=== PATIENT | female | born 1940 | race Caucasian/White ===

== ENCOUNTER 2017-07-12 11:37 | Inpatient (IN) | payer MEDICARE, BC ==
[2017-07-12] MEDS ORDERED: Famotidine 20 MG/2 ML SDV IVPUSH ONE (11:39)
[2017-07-12] MEDS ORDERED: Metoprolol Tartrate 5 MG/5 ML SDV IVPUSH ONE (11:39)
--- NOTE | 2017-07-12 11:39 | EDM.PDOC ---
ED HPI GENERAL MEDICAL PROBLEM - General Chief Complaint: Chest Pain Stated Complaint: Heart Palpatation Time Seen by Provider: 07/12/17 11:39 Source of Information: Reports: Patient, Family (), Old Records ([facility] chart/EMR) History Limitations: Reports: No Limitations - History of Present Illness INITIAL COMMENTS - FREE TEXT/NARRATIVE: Patient was brought to the emergency room via private automobile by her for evaluation of intermittent heart pounding and tachycardia during the last week with some recent increased stressors secondary to the recent unexpected sudden of her son-in-law. She has not had any cardiac workup or cardiac problems in the past. The patient denies any chest pain/pressure, dizziness, orthostasis, orthopnea, diaphoresis, paresthesias, recent decreased exercise tolerance, or any other anginal-type symptoms. She also denies any recent increased caffeine intake, medication noncompliance, recent change in medications, cold medications, etc. No recent history of abdominal pain, heartburn, nausea, diarrhea, melena, gross hematochezia, or any food intolerance , including fatty foods, etc. with normal bowel movement yesterday. She denies any colic, dysuria, or other UTI symptoms. The patient also denies any recent fever, cough, wheezing, dyspnea, etc.. No history of recent headaches, visual changes, diplopia, change in mental status, or other change in neurological status. She denies any pain or discomfort. Duration: Week(s): (One week as above), Intermittent Location: Reports: Other (No pain) Severity: Moderate (Pounding) Improves with: Reports: None Worsens with: Reports: None Context: Reports: Other (As above) Associated Symptoms: Denies: Confusion, Chest Pain, Cough, Diaphoresis, Fever/ Chills, Headaches, Loss of Appetite, Malaise, Nausea/Vomiting, Rash, Seizure, Shortness of Breath, Syncope, Weakness Treatments CAT AND DOG BATHER: Reports: Other (see below) (None) - Related Data Allergies Allergy/AdvReac Type Severity Reaction Status Date / Time aspirin Allergy Airway Verified 07/12/17 12:17 Tightness erythromycin base Allergy Hives Verified 07/12/17 12:17 Home Meds: Home Meds Allopurinol 100 mg PO DAILY 11/03/15 [History] Cholecalciferol (Vitamin D3) [Vitamin D3] 2,000 unit PO DAILY 11/03/15 [History] Cranberry 1,000 mg PO DAILY 11/03/15 [History] L. Acidophilus/Pectin, [place] [Acidophilus Capsule] 2 each PO DAILY 11/03/15 [ History] Lutein/Minerals/Vit A,C & E [I-Louise] 1 caplet PO DAILY 11/03/15 [History] Multivitamin [Multivitamins] 1 each PO DAILY 11/03/15 [History] Simvastatin 30 mg PO BEDTIME 11/03/15 [History] Enalapril [Vasotec] 20 mg PO DAILY 07/12/17 [History] Past Medical History HEENT History: Reports: Cataract, Impaired Vision, Other (See Below). Denies: Allergic Rhinitis, Glaucoma, Hard of Hearing, Macular Degeneration, Retinal Detachment Other HEENT History: Patient wears glasses Cardiovascular History: Reports: Heart Murmur, High Cholesterol, Hypertension, Other (See Below). Denies: Afib, Aneurysm, Arrhythmia, Blood Clots/VTE/DVT, CAD , Cardiomyopathy, Heart Failure, OK, PVD, Syncope Other Cardiovascular History: Hypertriglyceridemia. Aortic stenosis and mitral valve insufficiency by clinical exam with no apparent previous workup Respiratory History: Reports: None, Intubation, Previous. Denies: Asthma, Bronchitis, Recurrent, COPD, Intubation, Difficult, PE, Pneumonia, Recurrent, Pneumothorax, Sleep Apnea Gastrointestinal History: Reports: Cholelithiasis, Colon Polyp, Diverticulosis, Fecal Incontinence, GERD, Hemorrhoids, Other (See Below). Denies: Celiac Disease, Chronic Constipation, Chronic Diarrhea, Gastritis, GI Bleed, Hepatitis , Helicobacter Pylori, Hiatal Hernia, Inflammatory Bowel Disease, Irritable Bowel Syndrome, Jaundice, Pancreatitis Other Gastrointestinal History: Diffuse colonic polyps by colonoscopy on including a tubular adenoma at the hepatic flexure and hyperplastic colonic polyps in the ascending colon and 10 cm and 15 cm in the sigmoid colon. Sigmoid diverticulosis with history of diverticulitis Genitourinary History: Reports: Chronic Renal Insuffiency, UTI, Recurrent. Denies: Renal Calculus, Retention, Urinary, STD, Urinary Incontinence CLIENT PROJECT COORDINATOR History: Reports: . 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 First trimester SAB requiring D&C as below. Otherwise , Full term without complications during pregnancies or deliveries. Menopause at age 50 Musculoskeletal History: Reports: Arthritis, Fracture, Gout, Osteoarthritis, RA , Other (See Below). Denies: Amputation, Fibromyalgia Other Musculoskeletal History: Right ankle fracture in 1996 Neurological History: Reports: Neuropathy, Peripheral. Denies: Cerebral Aneurysms, Concussion, CVA, Head Trauma, Migraines, MS, Parkinson's, Seizure, TIA Psychiatric History: Reports: Anxiety, Depression. Denies: Abuse, Victim of, ADD, ADHD, Addiction, Alzheimers Disease, Dementia, Psych Hospitalization(s), PTSD, Suicide Attempt, Suicidal Ideation Endocrine/Metabolic History: Reports: Obesity/BMI 30+. Denies: Diabetes, Gestational, Diabetes, Type I, Diabetes, Type II, Diabetes Mellitus, Type 3c, Hypothyroidism, IDDM Hematologic History: Denies: Anemia, B12 Deficiency, Blood Transfusion(s), Iron Deficiency Immunologic History: Reports: None. Denies: AIDS, HIV, SLE Oncologic (Cancer) History: Reports: None. Denies: Basal Cell Carcinoma, Breast , Cervix, Colon, Hodgkin's Lymphoma, Leukemia, Lymphoma, Malignant Melanoma, Non -Hodgkin's Lymphoma, Ovarian, Squamous Cell Carcinoma, Uterine Dermatologic History: Reports: None. Denies: Eczema, Psoriasis - Infectious Disease History Infectious Disease History: Reports: Chicken Pox, Measles, Shingles (Right breast and back region with shingles and subsequent postherpetic neuralgia which is now resolved). Denies: C-Difficile, Meningitis, Mononucleosis, MRSA, Mumps, Pertussis (Whooping Cough), Rubella, Scarlet Fever, TB, VRE - Past Surgical History Head Surgeries/Procedures: Reports: None. Denies: Craniotomy HEENT Surgical History: Reports: Cataract Surgery, Oral Surgery, Other (See Below). Denies: Adenoidectomy, Eye Surgery, Laser Surgery, LASIK, Myringotomy w Tube(s), Naso-Sinus Surgery, Tonsillectomy Other HEENT Surgeries/Procedures: Bilateral cataract surgery in 2015. Multiple teeth extractions. [place] teeth extraction 4 at about age 33 Cardiovascular Surgical History: Reports: None. Denies: Varicose Respiratory Surgical History: Reports: None. Denies: Thoracentesis GI Surgical History: Reports: Appendectomy, Cholecystectomy, Colonoscopy, Polypectomy, Other (See Below). Denies: EGD, Hernia, Abdominal, Hernia, Inguinal, Hernia Repair/Other, Aron Fundoplication Other GI Surgeries/Procedures: Multiple polypectomies as above at the time of colonoscopy on 11/03/15 with previous colonoscopies on 10/29/10 and 10/26/05. Laparoscopic cholecystectomy on 06/16/11. Appendectomy concurrent with probable hymenectomy at age 11 Female Surgical History: Reports: D&C, Other (See Below). Denies: Breast Biopsy, Hysterectomy, Oophorectomy, Salpingo-Oophorectomy, Tubal Ligation Other Female Surgeries/Procedures: Probable hymenectomy at time of appendectomy at age 11. D&C secondary to first trimester SAB Endocrine Surgical History: Reports: None. Denies: Thyroid Biopsy Neurological Surgical History: Reports: None. Denies: C-Spine, Discectomy, Intracranial, Laminectomy, Lumbar Spine, Sacral Spine, Scoliosis, Spinal Fusion Musculoskeletal Surgical History: Reports: None. Denies: Arthroscopic Knee, Arthroscopic Procedure, Carpal Tunnel, Ganglion Cyst, Joint Replacement, Knee Replacement, ORIF, Shoulder Surgery Oncologic Surgical History: Reports: None Dermatological Surgical History: Reports: None - Past Imaging History Past Imaging History: Reports: None Social & Family History - Family History HEENT: Reports: Glaucoma, Other (See Below). Denies: Allergic Rhinitis, Macular Degeneration, Retinal Detachment Other HEENT Family History: Mother with glaucoma Cardiac: Reports: Blood Clots/VTE/DVT, CAD, OK, Other (See Below). Denies: Afib , Aneurysm, Arrhythmia, Heart Failure, High Cholesterol, Hypertension, Pacemaker , PVD/COD Other Cardiac Family History: Maternal grandfather with fatal OK secondary to typhoid exposure at age 50? Mother with fatal postoperative PE shortly after colonoscopy at age 78. Respiratory: Reports: PE, Other (See Below). Denies: Asthma, COPD, Pneumothorax , Sleep Apnea Other Respiratory Family Hisory: Mother with history of PE as above. GI: Reports: Cholelithiasis, Other (See Below). Denies: Celiac Disease, Colon Polyps, GERD, GI bleed, Inflammatory Bowel Disease, Irritable Bowel Syndrome, PUD Other GI Family History: Mother with cholelithiasis : Reports: None. Denies: Dialysis, Renal Calculus, Renal Disease/ Insufficiency OBGYN: Reports: None. Denies: Dysfunctional uterine bleeding, Endometriosis, Recurrent Spontaneous Musculoskeletal: Reports: None. Denies: Gout, RA, SLE Neurological: Reports: CVA, TIA, Other (See Below). Denies: Alzheimers Disease , Dementia, Migraines, MS, Parkinson's, Seizure Other Neurological Family History: Brother with TIA at age 76. Father with CVA Psychiatric: Reports: None. Denies: Abuse, Victim of, ADD, ADHD, Anxiety, Depression, Psych Hospitalization(s), PTSD, Suicide Attempt Endocrine/Metabolic: Reports: Diabetes, type II, Other (See Below). Denies: Hypothyroidism, IDDM Other Endocrine/Metabolic Family History: Mother and sister with AODM Hematologic: Reports: None. Denies: Anemia Immunologic: Reports: None. Denies: AIDS, HIV, SLE Dermatologic: Reports: None. Denies: Eczema, Psoriasis Oncologic: Reports: Bone, Lung, Other (See Below). Denies: Breast, Cervix, Colon, Hodgkin's Lymphoma, Leukemia, Lymphoma, Non-Hodgkin's Lymphoma, Ovarian, Skin, Uterine Other Oncologic Family History: Mother with lung cancer with history of tobacco use. Father with possible bone cancer. - Tobacco Use Smoking Status *Q: Never Smoker Tobacco Use Within Last Twelve Months: No Used Tobacco, but Quit: No Smoking Cessation Information Provided To Patient: No Second Hand Smoke Exposure: No Second Hand Smoke Education Provided: No - Caffeine Use Caffeine Use: Reports: Coffee (One cup per day). 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 ED EXAM, GENERAL - Physical Exam Exam: See Below Exam Limited By: No Limitations General Appearance: Alert, WD/WN, No Apparent Distress, Anxious (Mild to moderate) Eye Exam: Bilateral Eye: EOMI, Normal Fundi, Normal Inspection (No nystagmus), PERRL Ears: Normal External Exam, Normal Canal, Hearing Grossly Normal, Normal TMs Nose: Normal Inspection, Normal Mucosa, No Blood Throat/Mouth: Normal Lips, Normal Gums, Normal Oropharynx, Normal Voice, No Airway Compromise. No: Normal Teeth (Multiple missing teeth), Dysphagia, Perioral Cyanosis Head: Atraumatic, Normocephalic. No: Facial Swelling, Facial Tenderness, Sinus Tenderness Neck: Supple, Non-Tender, Full Range of Motion, Carotid Bruit (Moderate bilateral carotid bruits versus transmitted heart sounds). No: Lymphadenopathy (L), Lymphadenopathy (R), Thyromegaly Respiratory/Chest: Lungs Clear, No Accessory Muscle Use, Chest Non-Tender, Rales (Mild bilateral basilar rales), Other (Vessel thorax consistent with COPD) . No: Rhonchi, Wheezing, Pleural Rub, Retractions Cardiovascular: Normal Peripheral Pulses, No Gallop, No JVD, No Rub, Tachycardia (Regular rhythm), Systolic Murmur (2-3/6 MATEO of the mitral and aortic valves). No: No Edema (Dependent edema as below), Gallop/S3, Gallop/S4, Friction Rub Peripheral Pulses: 2+: Radial (L), Radial (R), Dorsalis Pedis (L), Dorsalis Pedis (R) GI/Abdominal: Normal Bowel Sounds, Soft, Non-Tender, No Organomegaly, No Distention, No Abnormal Bruit, No Mass, Pelvis Stable, Other (Obese). No: Guarding (Female) Exam: Deferred Rectal (Female) Exam: Deferred Back Exam: Normal Inspection, Full Range of Motion, Other (Moderate kyphosis). No: CVA Tenderness (L), CVA Tenderness (R), Muscle Spasm Extremities: Normal Range of Motion, Non-Tender, Normal Capillary Refill, Pedal Edema (Trace to +1 bilateral pedal/pretibial edema). No: Kassie's Sign, Leg Pain Neurological: Alert, Oriented, CN II-XII Intact, Normal Cognition, Normal Gait, Normal Reflexes (Negative Babinski's), No Motor/Sensory Deficits Psychiatric: Anxious (Moderate) Skin Exam: Warm, Dry, Intact, Normal Color, No Rash. No: Diaphoretic, Wound/ Incision Lymphatic: No Adenopathy EKG INTERPRETATION EKG Date: 07/12/17 Time: 11:49 Rhythm: Other (Sinus tachycardia) Rate (Beats/Min): 107 [place]: Normal (Left cardiac axis) P-Wave: Enlarged (Diffuse biphasic P wavesmild) QRS: Normal (QRS interval of 0.09 seconds) ST-T: Normal QT: Normal AK/PQ Interval: 0.20 seconds representing a new first degree AV block since last EKG on 08/22/10 Comparison: Change From Previous EKG (As above) EKG Interpretation Comments: 1. No acute ischemic changes 2. Probable left atrial enlargement 3. Newly diagnosed first-degree AV block Course - Vital Signs Last Recorded V/S: Last Vital Signs Temp 36.9 C 07/12/17 14:20 Pulse 82 07/12/17 14:51 Resp 18 07/12/17 14:51 BP 152/75 H 07/12/17 14:51 Pulse Ox 100 07/12/17 14:51 Vital Signs - 24 hr 07/12/17 07/12/17 07/12/17 11:39 11:40 11:46 Temperature [ 36.8 C 37.0 C Oral] Pulse, Peripheral Pulse, 110 H 108 H Peripheral [ Right Pulse Oximetry] Respiratory 20 19 Rate Blood Pressure Blood Pressure 190/73 H 175/84 H [Right Upper Arm] O2 Sat by Pulse 100 100 Oximetry O2 Sat by Pulse 98 Oximetry [ Nasal Cannula] 07/12/17 07/12/17 07/12/17 12:01 12:03 12:16 Temperature [ Oral] Pulse, 110 H Peripheral Pulse, 107 H 98 Peripheral [ Right Pulse Oximetry] Respiratory 20 17 Rate Blood Pressure 175/84 H Blood Pressure 157/58 H 151/74 H [Right Upper Arm] O2 Sat by Pulse 98 98 Oximetry O2 Sat by Pulse Oximetry [ Nasal Cannula] 07/12/17 07/12/17 07/12/17 12:31 12:46 13:15 Temperature [ Oral] Pulse, Peripheral Pulse, 94 96 90 Peripheral [ Right Pulse Oximetry] Respiratory 17 18 20 Rate Blood Pressure Blood Pressure 154/68 H 151/66 H 154/63 H [Right Upper Arm] O2 Sat by Pulse 99 99 100 Oximetry O2 Sat by Pulse Oximetry [ Nasal Cannula] 07/12/17 07/12/17 07/12/17 13:57 14:01 14:20 Temperature [ 36.9 C Oral] Pulse, 95 Peripheral Pulse, 95 91 Peripheral [ Right Pulse Oximetry] Respiratory 18 19 Rate Blood Pressure 176/76 H Blood Pressure 176/76 H 162/61 H [Right Upper Arm] O2 Sat by Pulse 99 100 Oximetry O2 Sat by Pulse Oximetry [ Nasal Cannula] 07/12/17 14:51 Temperature [ Oral] Pulse, Peripheral Pulse, 82 Peripheral [ Right Pulse Oximetry] Respiratory 18 Rate Blood Pressure Blood Pressure 152/75 H [Right Upper Arm] O2 Sat by Pulse 100 Oximetry O2 Sat by Pulse Oximetry [ Nasal Cannula] - Orders/Labs/Meds Orders: Active Orders 24 hr Category Date Time Status Cardiac Monitoring [RC] . DIRECTED Care 07/12/17 11:40 Active EKG Documentation Completion [RC] ASDIRECTED Care 07/12/17 11:40 Active Oxygen Therapy, ED [RC] CONTINUOUS Care 07/12/17 11:40 Active Peripheral IV Care [RC] . DIRECTED Care 07/12/17 11:40 Active Pulse Oximetry [RC] CONTINUOUS Care 07/12/17 11:40 Active Up With Assistance [RC] PFP Care 07/12/17 11:40 Active Vital Signs [RC] PFP Care 07/12/17 11:40 Active Nothing per Oral Now Diet [DIET] Diet 07/12/17 Breakfast Active Chest 1V Frontal [CR] Stat Exams 07/12/17 11:40 Ordered Chest PE [Ang Chest] [CT] Stat Exams 07/12/17 12:47 Taken Sodium Chloride 0.9% [Saline Flush] Med 07/12/17 11:39 Active 10 ml FLUSH ASDIRECTED PRN Obtain Past Medical Record [OM.PC] Urgent Oth 07/12/17 11:40 Active Peripheral IV Insertion Adult [OM.PC] Stat Oth 07/12/17 11:40 Ordered Resuscitation Status Stat Resus Stat 07/12/17 11:39 Ordered Medication Orders Sodium Chloride (Saline Flush) 10 ml FLUSH ASDIRECTED PRN PRN Reason: Keep Vein Open Last Admin: 07/12/17 14:19 Dose: 10 ml Labs: Laboratory Tests 07/12/17 07/12/17 07/12/17 Range/Units 12:00 12:00 12:00 WBC 8.7 (4.0-10.2) K/uL RBC 4.45 (3.77-5.09) M/uL Hgb 14.2 (11.7-15.5) g/dL Hct 42.4 (34.0-46.0) % MCV 95.3 (84.0-98.0) fL MCH 31.9 (28.2-33.3) pg MCHC 33.5 (31.7-36.0) g/dL RDW 15.0 H (11.2-14.1) % Plt Count 225 (150-350) K/uL Neut % (Auto) 44.2 L (45.0-80.0) % Lymph % (Auto) 36.3 (10.0-50.0) % Lamb % (Auto) 16.3 H (2.0-14.0) % Eos % (Auto) 2.5 (0.0-5.0) % Baso % (Auto) 0.7 (0.0-2.0) % Neut # (Auto) 3.83 (1.40-7.00) K/uL Lymph # (Auto) 3.15 (0.50-3.50) K/uL Lamb # (Auto) 1.41 H (0.00-1.00) K/uL Eos # (Auto) 0.22 (0.00-0.50) K/uL Baso # (Auto) 0.06 (0.00-0.20) K/uL PT 12.0 H (9.8-11.7) SEC INR 1.1 APTT 28.2 (22.1-29.8) SEC D-Dimer, Quantitative 1060 H (0-400) ng/mL Sodium (136-145) mmol/L Potassium (3.5-5.1) mmol/L Chloride (98-107) mmol/L Carbon Dioxide (21.0-32.0) mmol/L BUN (7-18) mg/dL Creatinine (0.51-1.17) mg/dL Est Cr Clr Drug Dosing Estimated GFR (MDRD) mL/min Glucose (74-106) mg/dL Lactic Acid (0.4-2.0) mmol/L Uric Acid (2.6-7.2) mg/dL Calcium (8.5-10.1) mg/dL Magnesium (1.8-2.4) mg/dL Total Bilirubin (0.2-1.0) mg/dL AST (15-37) U/L ALT (12-78) U/L Alkaline Phosphatase (46-116) IU/L Creatine Kinase (26-308) U/L Creatine Kinase Index (0.0-2.5) % CK-MB (CK-2) (0.00-3.60) ng/mL Troponin I (0.000-0.056) ng/mL NT-Pro-B Natriuret Pep (0-125) pg/mL Total Protein (6.4-8.2) g/dL Albumin (3.4-5.0) g/dL TSH, Ultra Sensitive (0.358-3.740) mIU/mL 07/12/17 07/12/17 Range/Units 12:00 12:00 WBC (4.0-10.2) K/uL RBC (3.77-5.09) M/uL Hgb (11.7-15.5) g/dL Hct (34.0-46.0) % MCV (84.0-98.0) fL MCH (28.2-33.3) pg MCHC (31.7-36.0) g/dL RDW (11.2-14.1) % Plt Count (150-350) K/uL Neut % (Auto) (45.0-80.0) % Lymph % (Auto) (10.0-50.0) % Lamb % (Auto) (2.0-14.0) % Eos % (Auto) (0.0-5.0) % Baso % (Auto) (0.0-2.0) % Neut # (Auto) (1.40-7.00) K/uL Lymph # (Auto) (0.50-3.50) K/uL Lamb # (Auto) (0.00-1.00) K/uL Eos # (Auto) (0.00-0.50) K/uL Baso # (Auto) (0.00-0.20) K/uL PT (9.8-11.7) SEC INR APTT (22.1-29.8) SEC D-Dimer, Quantitative (0-400) ng/mL Sodium 139 (136-145) mmol/L Potassium 4.8 (3.5-5.1) mmol/L Chloride 104 (98-107) mmol/L Carbon Dioxide 26.7 (21.0-32.0) mmol/L BUN 21 H (7-18) mg/dL Creatinine 1.19 H (0.51-1.17) mg/dL Est Cr Clr Drug Dosing TNP Estimated GFR (MDRD) 44 mL/min Glucose 107 H (74-106) mg/dL Lactic Acid 2.7 H (0.4-2.0) mmol/L Uric Acid 5.7 (2.6-7.2) mg/dL Calcium 9.9 (8.5-10.1) mg/dL Magnesium 1.4 L (1.8-2.4) mg/dL Total Bilirubin 0.6 (0.2-1.0) mg/dL AST 45 H (15-37) U/L ALT 30 (12-78) U/L Alkaline Phosphatase 97 (46-116) IU/L Creatine Kinase 43 (26-308) U/L Creatine Kinase Index 0.0 (0.0-2.5) % CK-MB (CK-2) 0.00 (0.00-3.60) ng/mL Troponin I 0.007 (0.000-0.056) ng/mL NT-Pro-B Natriuret Pep 586 H (0-125) pg/mL Total Protein 8.9 H (6.4-8.2) g/dL Albumin 3.4 (3.4-5.0) g/dL TSH, Ultra Sensitive 4.457 H (0.358-3.740) mIU/mL Meds: Medications Generic Name Dose Route Start Last Admin Trade Name Freq PRN Reason Stop Dose Admin Sodium Chloride 10 ml 07/12/17 11:39 07/12/17 14:19 Saline Flush FLUSH 10 ml ASDIRECTED PRN Administration Keep Vein Open Discontinued Medications Generic Name Dose Route Start Last Admin Trade Name Freq PRN Reason Stop Dose Admin Famotidine 40 mg 07/12/17 11:39 07/12/17 12:03 Pepcid IVPUSH 07/12/17 11:40 40 mg ONETIME ONE Administration Furosemide 60 mg 07/12/17 14:13 07/12/17 14:17 Lasix IVPUSH 07/12/17 14:14 60 mg NOW ONE Administration Iopamidol 100 ml 07/12/17 13:16 07/12/17 13:50 [id number] (76%) IVPUSH 07/12/17 13:17 100 ml ONETIME ONE Administration Metoprolol Tartrate 2.5 mg 07/12/17 11:39 07/12/17 12:03 Lopressor IVPUSH 07/12/17 11:40 2.5 mg ONETIME ONE Administration Metoprolol Tartrate 50 mg 07/12/17 13:33 07/12/17 14:01 Lopressor PO 07/12/17 13:34 50 mg ONETIME ONE Administration - Radiology Interpretation Free Text/Narrative:: Heart monitor showed initial sinus tachycardia with heart rate in the 110s with no ectopy or arrhythmia with improvement of heart rate into the 90s after IV Lopressor was given. Chest x-ray, portable, shows evidence of moderate COPD changes with additional mild cardiomegaly and probable pulmonary hypertension and/or mild centralized CHF. Somewhat poor inspiratory film with no pulmonary infiltrates Telephone consultation at 15:04 hours with the radiology department at [facility] with preliminary verbal report of CTA of the chest. No evidence of PE. Nonspecific ground glass pulmonary changes bilaterally with additional evidence of COPD. CT Results Date: 07/12/17 CT Results Time: 15:04 Departure - Departure Time of Disposition: 15:30 Disposition: Admitted As Inpatient 64 Condition: Fair Clinical Impression: Tachycardia, D-dimer, elevated, Peptic reflux disease, Hypothyroidism (acquired ), Renal insufficiency, Valvular disease, Hypomagnesemia, Mixed anxiety depressive disorder, Lactic acid increased, Elevated LFTs CHF (congestive heart failure) Qualifiers: Heart failure type: unspecified Heart failure chronicity: acute Qualified Code( s): I50.9 - Heart failure, unspecified Hypertension Qualifiers: Hypertension type: essential hypertension Qualified Code(s): I10 - Essential ( primary) hypertension Hyperlipidemia Qualifiers: Hyperlipidemia type: unspecified Qualified Code(s): E78.5 - Hyperlipidemia, unspecified Rheumatoid arthritis Qualifiers: Rheumatoid arthritis location: multiple sites Rheumatoid factor presence: with rheumatoid factor Qualified Code(s): M05.79 - Rheumatoid arthritis with rheumatoid factor of multiple sites without organ or systems involvement COPD (chronic obstructive pulmonary disease) Qualifiers: COPD type: emphysema Emphysema type: panlobular Qualified Code(s): J43.1 - Panlobular emphysema - Problem List & Annotations (1) CHF (congestive heart failure) SNOMED Code(s): 97587520 Code(s): I50.9 - HEART FAILURE, UNSPECIFIED Status: Acute Priority: High Current Visit: Yes Onset Date: 07/12/17 Annotation/Comment:: IV Lasix therapy initiated in the emergency room. Patient is already on an BRANDON inhibitor. Echocardiogram could not be conducted today with echocardiogram SEAN on an outpatient basis strongly recommended secondary to her significant valvular disease as above/below. No chest pain or anginal type symptoms with with chest pain protocol not initiated in the emergency room. Initiate standard rule out OK orders. Cardiology consultation depending on her clinical course. Cardiolite stress test on an outpatient basis is also strongly recommended secondary to her multiple cardiac risk factors. Qualifiers: Heart failure type: unspecified Heart failure chronicity: acute Qualified Code(s): I50.9 - Heart failure, unspecified (2) Tachycardia SNOMED Code(s): 8969289 Code(s): R00.0 - TACHYCARDIA, UNSPECIFIED Status: Acute Priority: High Current Visit: Yes Onset Date: ~07/05/17 Annotation/Comment:: Overall good response to the block therapy in the emergency room. Otherwise as above. Some anxiety component to patient's symptoms based on her history. (3) Valvular disease SNOMED Code(s): 089419 Code(s): I38 - ENDOCARDITIS, VALVE UNSPECIFIED Status: Chronic Priority: High Current Visit: Yes Annotation/Comment:: Significant valvular disease by clinical exam probable moderate mitral valve insufficiency and aortic valve stenosis. Cardiac workup SEAN as above. (4) D-dimer, elevated SNOMED Code(s): 988938462 Code(s): R79.89 - OTHER SPECIFIED ABNORMAL FINDINGS OF BLOOD CHEMISTRY Status: Acute Priority: High Current Visit: Yes Onset Date: 07/12/17 Annotation/Comment:: Note CTA of the chest results as above. Venous Doppler studies of the lower extremities are to be conducted during this hospitalization. Initiate subcutaneous Lovenox dose at the DVT/cardiac prophylaxis (5) Mixed anxiety depressive disorder SNOMED Code(s): 672365798 Code(s): F41.8 - OTHER SPECIFIED ANXIETY DISORDERS Status: Chronic Priority: High Current Visit: Yes Annotation/Comment:: Various therapeutic options were given to the patient and her , who are requesting initiation of medical therapy secondary to increased stressors, etc. Continue to observe closely by her regular provider with consideration of counseling, etc. depending on her clinical course. Emotional support provided especially in light of the recent of her son-in-law from an unexpected acute [place] (6) Hypertension SNOMED Code(s): 03544544 Code(s): I10 - ESSENTIAL (PRIMARY) HYPERTENSION Status: Chronic Priority : High Current Visit: Yes Annotation/Comment:: Her blood pressures were somewhat elevated in the emergency room, however improved with medical therapy. Continue to observe blood pressures closely secondary to multiple medication adjustments as above. Qualifiers: Hypertension type: essential hypertension Qualified Code(s): I10 - Essential (primary) hypertension (7) Hyperlipidemia SNOMED Code(s): 43845717 Code(s): E78.5 - HYPERLIPIDEMIA, UNSPECIFIED Status: Chronic Priority: Medium Current Visit: Yes Annotation/Comment:: Lipid panel and glycosylated hemoglobin to be conducted in the a.m. Weight loss in moderation advisable. Qualifiers: Hyperlipidemia type: unspecified Qualified Code(s): E78.5 - Hyperlipidemia , unspecified (8) Peptic reflux disease SNOMED Code(s): 267264248 Code(s): K21.9 - GASTRO-ESOPHAGEAL REFLUX DISEASE WITHOUT ESOPHAGITIS Status: Chronic Priority: Medium Current Visit: Yes Annotation/Comment:: Stable by patient history. High-dose IV Pepcid given in the emergency room as GI prophylaxis (9) Hypothyroidism (acquired) SNOMED Code(s): 285377968 Code(s): E03.9 - HYPOTHYROIDISM, UNSPECIFIED Status: Acute Priority: High Current Visit: Yes Onset Date: 07/12/17 Annotation/Comment:: TSH somewhat elevated. Initiate L thyroxine therapy with recommended repeat TSH in 4 weeks (10) Rheumatoid arthritis SNOMED Code(s): 85554141 Code(s): M06.9 - RHEUMATOID ARTHRITIS, UNSPECIFIED Status: Chronic Priority: Medium Current Visit: Yes Annotation/Comment:: History of additional osteoarthritis and gout stable by patient history. Observe uric acid levels closely secondary to her diuresis as above. Qualifiers: Rheumatoid arthritis location: multiple sites Rheumatoid factor presence: with rheumatoid factor Qualified Code(s): M05.79 - Rheumatoid arthritis with rheumatoid factor of multiple sites without organ or systems involvement (11) Renal insufficiency SNOMED Code(s): 597631919, 089193410 Code(s): N28.9 - DISORDER OF KIDNEY AND URETER, UNSPECIFIED Status: Chronic Priority: Medium Current Visit: Yes Annotation/Comment:: Continue to observe closely secondary to IV Lasix therapy (12) Hypomagnesemia SNOMED Code(s): 258459394 Code(s): E83.42 - HYPOMAGNESEMIA Status: Acute Priority: Medium Current Visit: Yes Onset Date: 07/12/17 Annotation/Comment:: Initiate magnesium oxide therapy especially in light of IV Lasix. Close follow-up by regular provider. (13) Lactic acid increased SNOMED Code(s): 39080360 Code(s): E87.2 - ACIDOSIS Status: Acute Priority: High Current Visit: Yes Onset Date: 07/12/17 Annotation/Comment:: Likely secondary to stress reaction. No history of fever or evidence of sepsis. Repeat lactic acid level with next set of blood work and in the a.m. (14) Elevated LFTs SNOMED Code(s): 154047119, 064987904 Code(s): R79.89 - OTHER SPECIFIED ABNORMAL FINDINGS OF BLOOD CHEMISTRY Status: Acute Priority: Medium Current Visit: Yes Onset Date: 07/12/17 Annotation/Comment:: Mild LFTs elevation likely secondary to her CHF and probable fatty liver. Continue to observe closely. (15) COPD (chronic obstructive pulmonary disease) SNOMED Code(s): 22541005 Code(s): J44.9 - CHRONIC OBSTRUCTIVE PULMONARY DISEASE, UNSPECIFIED Status : Chronic Current Visit: Yes Annotation/Comment:: No recent fever or bronchitic type symptoms. COPD by physical exam and chest x-ray. Consider PFTs once patient's cardiac status has been determined. Qualifiers: COPD type: emphysema Emphysema type: panlobular Qualified Code(s): J43.1 - Panlobular emphysema - Problem List Review Problem List Initiated/Reviewed/Updated: Yes - My Orders Last 24 Hours: My Active Orders 07/12/17 11:39 Sodium Chloride 0.9% [Saline Flush] 10 ml FLUSH ASDIRECTED PRN Resuscitation Status Stat 07/12/17 11:40 Cardiac Monitoring [RC] . DIRECTED EKG Documentation Completion [RC] ASDIRECTED Oxygen Therapy, ED [RC] CONTINUOUS Peripheral IV Care [RC] . DIRECTED Pulse Oximetry [RC] CONTINUOUS Up With Assistance [RC] PFP Vital Signs [RC] PFP Chest 1V Frontal [CR] Stat Obtain Past Medical Record [OM.PC] Urgent Peripheral IV Insertion Adult [OM.PC] Stat 07/12/17 12:47 Chest PE [Ang Chest] [CT] Stat 07/12/17 Breakfast Nothing per Oral Now Diet [DIET] - Assessment/Plan Admission H&P: Please use this note as an admission H&P Last 24 Hours: My Active Orders 07/12/17 11:39 Sodium Chloride 0.9% [Saline Flush] 10 ml FLUSH ASDIRECTED PRN Resuscitation Status Stat 07/12/17 11:40 Cardiac Monitoring [RC] . DIRECTED EKG Documentation Completion [RC] ASDIRECTED Oxygen Therapy, ED [RC] CONTINUOUS Peripheral IV Care [RC] . DIRECTED Pulse Oximetry [RC] CONTINUOUS Up With Assistance [RC] PFP Vital Signs [RC] PFP Chest 1V Frontal [CR] Stat Obtain Past Medical Record [OM.PC] Urgent Peripheral IV Insertion Adult [OM.PC] Stat 07/12/17 12:47 Chest PE [Ang Chest] [CT] Stat 07/12/17 Breakfast Nothing per Oral Now Diet [DIET] Assessment:: As above Plan: As above. Extensive precautions were given to the patient and her , who are in agreement with the treatment plan. The patient will require about 3-4 days of inpatient/acute care secondary to multiple health problems as above. [facility] assumes care in the a.m.
[2017-07-12 12:28] LABS: CHLORIDE,CL 104 mmol/L (98-107); SODIUM,NA 139 mmol/L (136-145)
[2017-07-12] MEDS ORDERED: Iopamidol 755 Mg/ML 100 ML Bottle IVPUSH ONE (13:16)
[2017-07-12] MEDS ORDERED: Metoprolol Tartrate 50 MG Tab PO ONE (13:33)
[2017-07-12] MEDS ORDERED: Furosemide 40 MG/4 ML VIAL IVPUSH ONE (14:13)
[2017-07-12] MEDS: Sodium Chloride 0.9% 10 ML Syringe FLUSH PRN ×2 (14:19→22:08)
[2017-07-12] MEDS ORDERED: Sodium Chloride 0.9% 10 ML Syringe FLUSH PRN (15:38)
[2017-07-12] MEDS ORDERED: Temazepam 15 MG Cap PO PRN (15:38)
[2017-07-12] MEDS ORDERED: Enoxaparin 60 MG/0.6 ML Syringe SUBCUT SCH (15:45)
[2017-07-12] MEDS: Potassium Chloride 20 MEQ Tab.ER PO SCH (17:02)
[2017-07-12] MEDS: Magnesium Oxide 400 MG Tab PO SCH (17:02)
[2017-07-12] MEDS: Enoxaparin 100 MG/1 ML Syringe SUBCUT SCH (17:03)
[2017-07-12] MEDS: Simvastatin 20 MG Tab PO SCH (19:55)
[2017-07-12] MEDS: Furosemide 40 MG/4 ML VIAL IVPUSH SCH (22:08)
[2017-07-13] MEDS: Levothyroxine 50 MCG Tab PO SCH (07:56)
--- NOTE | 2017-07-13 08:19 | PCM.PN ---
- General Info Date of Service: 07/13/17 Admission Dx/Problem (Free Text): CHF COPD Anxiety with recent family stressor and loss of loved one Functional Status: Reports: Pain Controlled - Review of Systems General: Reports: Weakness HEENT: Reports: No Symptoms Pulmonary: Reports: No Symptoms Cardiovascular: Reports: Other (no palitations through the night) Gastrointestinal: Reports: No Symptoms Genitourinary: Reports: No Symptoms Musculoskeletal: Reports: No Symptoms Skin: Reports: No Symptoms Neurological: Reports: No Symptoms Psychiatric: Reports: Anxiety - Patient Data Vitals - Most Recent: Last Vital Signs Temp 98 F 07/13/17 04:00 Pulse 70 07/13/17 04:00 Resp 18 07/13/17 04:00 BP 146/76 H 07/13/17 04:00 Pulse Ox 94 L 07/13/17 04:00 Weight - Most Recent: 238 lb 11.2 oz I&O - Last 24 Hours: Intake & Output 07/12/17 07/13/17 07/13/17 22:59 06:59 14:59 Intake Total 460 Output Total 500 Balance 460 -500 Lab Results Last 24 Hours: Laboratory Results - last 24 hr 07/12/17 07/12/17 07/12/17 Range/Units 12:00 12:00 12:00 WBC 8.7 (4.0-10.2) K/uL RBC 4.45 (3.77-5.09) M/uL Hgb 14.2 (11.7-15.5) g/dL Hct 42.4 (34.0-46.0) % MCV 95.3 (84.0-98.0) fL MCH 31.9 (28.2-33.3) pg MCHC 33.5 (31.7-36.0) g/dL RDW 15.0 H (11.2-14.1) % Plt Count 225 (150-350) K/uL Neut % (Auto) 44.2 L (45.0-80.0) % Lymph % (Auto) 36.3 (10.0-50.0) % [place] % (Auto) 16.3 H (2.0-14.0) % Eos % (Auto) 2.5 (0.0-5.0) % Baso % (Auto) 0.7 (0.0-2.0) % Neut # (Auto) 3.83 (1.40-7.00) K/uL Lymph # (Auto) 3.15 (0.50-3.50) K/uL [place] # (Auto) 1.41 H (0.00-1.00) K/uL Eos # (Auto) 0.22 (0.00-0.50) K/uL Baso # (Auto) 0.06 (0.00-0.20) K/uL PT 12.0 H (9.8-11.7) SEC INR 1.1 APTT 28.2 (22.1-29.8) SEC D-Dimer, Quantitative 1060 H (0-400) ng/mL Sodium (136-145) mmol/L Potassium (3.5-5.1) mmol/L Chloride (98-107) mmol/L Carbon Dioxide (21.0-32.0) mmol/L BUN (7-18) mg/dL Creatinine (0.51-1.17) mg/dL Est Cr Clr Drug Dosing Estimated GFR (MDRD) mL/min Glucose (74-106) mg/dL Hemoglobin A1c (4.3-5.7) % Lactic Acid (0.4-2.0) mmol/L Uric Acid (2.6-7.2) mg/dL Calcium (8.5-10.1) mg/dL Magnesium (1.8-2.4) mg/dL Total Bilirubin (0.2-1.0) mg/dL AST (15-37) U/L ALT (12-78) U/L Alkaline Phosphatase (46-116) IU/L Creatine Kinase (26-308) U/L Creatine Kinase Index (0.0-2.5) % CK-MB (CK-2) (0.00-3.60) ng/mL Troponin I (0.000-0.056) ng/mL NT-Pro-B Natriuret Pep (0-125) pg/mL Total Protein (6.4-8.2) g/dL Albumin (3.4-5.0) g/dL Triglycerides (30-150) mg/dL Cholesterol (100-200) mg/dL LDL Cholesterol, Calc (0-100) mg/dL HDL Cholesterol (40-60) mg/dL TSH, Ultra Sensitive (0.358-3.740) mIU/mL 07/12/17 07/12/17 07/12/17 Range/Units 12:00 12:00 15:50 WBC (4.0-10.2) K/uL RBC (3.77-5.09) M/uL Hgb (11.7-15.5) g/dL Hct (34.0-46.0) % MCV (84.0-98.0) fL MCH (28.2-33.3) pg MCHC (31.7-36.0) g/dL RDW (11.2-14.1) % Plt Count (150-350) K/uL Neut % (Auto) (45.0-80.0) % Lymph % (Auto) (10.0-50.0) % [place] % (Auto) (2.0-14.0) % Eos % (Auto) (0.0-5.0) % Baso % (Auto) (0.0-2.0) % Neut # (Auto) (1.40-7.00) K/uL Lymph # (Auto) (0.50-3.50) K/uL [place] # (Auto) (0.00-1.00) K/uL Eos # (Auto) (0.00-0.50) K/uL Baso # (Auto) (0.00-0.20) K/uL PT (9.8-11.7) SEC INR APTT (22.1-29.8) SEC D-Dimer, Quantitative (0-400) ng/mL Sodium 139 (136-145) mmol/L Potassium 4.8 (3.5-5.1) mmol/L Chloride 104 (98-107) mmol/L Carbon Dioxide 26.7 (21.0-32.0) mmol/L BUN 21 H (7-18) mg/dL Creatinine 1.19 H (0.51-1.17) mg/dL Est Cr Clr Drug Dosing TNP Estimated GFR (MDRD) 44 mL/min Glucose 107 H (74-106) mg/dL Hemoglobin A1c (4.3-5.7) % Lactic Acid 2.7 H (0.4-2.0) mmol/L Uric Acid 5.7 (2.6-7.2) mg/dL Calcium 9.9 (8.5-10.1) mg/dL Magnesium 1.4 L (1.8-2.4) mg/dL Total Bilirubin 0.6 (0.2-1.0) mg/dL AST 45 H (15-37) U/L ALT 30 (12-78) U/L Alkaline Phosphatase 97 (46-116) IU/L Creatine Kinase 43 51 (26-308) U/L Creatine Kinase Index 0.0 2.4 (0.0-2.5) % CK-MB (CK-2) 0.00 1.20 (0.00-3.60) ng/mL Troponin I 0.007 0.011 (0.000-0.056) ng/mL NT-Pro-B Natriuret Pep 586 H (0-125) pg/mL Total Protein 8.9 H (6.4-8.2) g/dL Albumin 3.4 (3.4-5.0) g/dL Triglycerides (30-150) mg/dL Cholesterol (100-200) mg/dL LDL Cholesterol, Calc (0-100) mg/dL HDL Cholesterol (40-60) mg/dL TSH, Ultra Sensitive 4.457 H (0.358-3.740) mIU/mL 07/12/17 07/12/17 07/13/17 Range/Units 15:50 21:20 06:33 WBC 9.4 (4.0-10.2) K/uL RBC 4.51 (3.77-5.09) M/uL Hgb 14.1 (11.7-15.5) g/dL Hct 42.5 (34.0-46.0) % MCV 94.2 (84.0-98.0) fL MCH 31.3 (28.2-33.3) pg MCHC 33.2 (31.7-36.0) g/dL RDW 15.0 H (11.2-14.1) % Plt Count 238 (150-350) K/uL Neut % (Auto) 50.6 (45.0-80.0) % Lymph % (Auto) 28.7 (10.0-50.0) % [place] % (Auto) 17.2 H (2.0-14.0) % Eos % (Auto) 2.9 (0.0-5.0) % Baso % (Auto) 0.6 (0.0-2.0) % Neut # (Auto) 4.77 (1.40-7.00) K/uL Lymph # (Auto) 2.70 (0.50-3.50) K/uL [place] # (Auto) 1.62 H (0.00-1.00) K/uL Eos # (Auto) 0.27 (0.00-0.50) K/uL Baso # (Auto) 0.06 (0.00-0.20) K/uL PT (9.8-11.7) SEC INR APTT (22.1-29.8) SEC D-Dimer, Quantitative (0-400) ng/mL Sodium (136-145) mmol/L Potassium (3.5-5.1) mmol/L Chloride (98-107) mmol/L Carbon Dioxide (21.0-32.0) mmol/L BUN (7-18) mg/dL Creatinine (0.51-1.17) mg/dL Est Cr Clr Drug Dosing Estimated GFR (MDRD) mL/min Glucose (74-106) mg/dL Hemoglobin A1c (4.3-5.7) % Lactic Acid 1.1 (0.4-2.0) mmol/L Uric Acid (2.6-7.2) mg/dL Calcium (8.5-10.1) mg/dL Magnesium (1.8-2.4) mg/dL Total Bilirubin (0.2-1.0) mg/dL AST (15-37) U/L ALT (12-78) U/L Alkaline Phosphatase (46-116) IU/L Creatine Kinase 72 (26-308) U/L Creatine Kinase Index 2.1 (0.0-2.5) % CK-MB (CK-2) 1.50 (0.00-3.60) ng/mL Troponin I 0.010 (0.000-0.056) ng/mL NT-Pro-B Natriuret Pep (0-125) pg/mL Total Protein (6.4-8.2) g/dL Albumin (3.4-5.0) g/dL Triglycerides (30-150) mg/dL Cholesterol (100-200) mg/dL LDL Cholesterol, Calc (0-100) mg/dL HDL Cholesterol (40-60) mg/dL TSH, Ultra Sensitive (0.358-3.740) mIU/mL 07/13/17 07/13/17 07/13/17 Range/Units 06:33 06:33 06:33 WBC (4.0-10.2) K/uL RBC (3.77-5.09) M/uL Hgb (11.7-15.5) g/dL Hct (34.0-46.0) % MCV (84.0-98.0) fL MCH (28.2-33.3) pg MCHC (31.7-36.0) g/dL RDW (11.2-14.1) % Plt Count (150-350) K/uL Neut % (Auto) (45.0-80.0) % Lymph % (Auto) (10.0-50.0) % [place] % (Auto) (2.0-14.0) % Eos % (Auto) (0.0-5.0) % Baso % (Auto) (0.0-2.0) % Neut # (Auto) (1.40-7.00) K/uL Lymph # (Auto) (0.50-3.50) K/uL [place] # (Auto) (0.00-1.00) K/uL Eos # (Auto) (0.00-0.50) K/uL Baso # (Auto) (0.00-0.20) K/uL PT (9.8-11.7) SEC INR APTT (22.1-29.8) SEC D-Dimer, Quantitative 847 H (0-400) ng/mL Sodium 141 (136-145) mmol/L Potassium 4.6 (3.5-5.1) mmol/L Chloride 104 (98-107) mmol/L Carbon Dioxide 27.0 (21.0-32.0) mmol/L BUN 26 H (7-18) mg/dL Creatinine 1.49 H (0.51-1.17) mg/dL Est Cr Clr Drug Dosing 24.61 Estimated GFR (MDRD) 34 mL/min Glucose 101 (74-106) mg/dL Hemoglobin A1c 6.3 H (4.3-5.7) % Lactic Acid (0.4-2.0) mmol/L Uric Acid (2.6-7.2) mg/dL Calcium 9.8 (8.5-10.1) mg/dL Magnesium (1.8-2.4) mg/dL Total Bilirubin 0.6 (0.2-1.0) mg/dL AST 40 H (15-37) U/L ALT 27 (12-78) U/L Alkaline Phosphatase 81 (46-116) IU/L Creatine Kinase 96 (26-308) U/L Creatine Kinase Index 1.4 (0.0-2.5) % CK-MB (CK-2) 1.30 (0.00-3.60) ng/mL Troponin I 0.008 (0.000-0.056) ng/mL NT-Pro-B Natriuret Pep 917 H (0-125) pg/mL Total Protein 8.5 H (6.4-8.2) g/dL Albumin 3.3 L (3.4-5.0) g/dL Triglycerides 115 (30-150) mg/dL Cholesterol 146 (100-200) mg/dL LDL Cholesterol, Calc 58 (0-100) mg/dL HDL Cholesterol 65 H (40-60) mg/dL TSH, Ultra Sensitive (0.358-3.740) mIU/mL 07/13/17 Range/Units 06:33 WBC (4.0-10.2) K/uL RBC (3.77-5.09) M/uL Hgb (11.7-15.5) g/dL Hct (34.0-46.0) % MCV (84.0-98.0) fL MCH (28.2-33.3) pg MCHC (31.7-36.0) g/dL RDW (11.2-14.1) % Plt Count (150-350) K/uL Neut % (Auto) (45.0-80.0) % Lymph % (Auto) (10.0-50.0) % [place] % (Auto) (2.0-14.0) % Eos % (Auto) (0.0-5.0) % Baso % (Auto) (0.0-2.0) % Neut # (Auto) (1.40-7.00) K/uL Lymph # (Auto) (0.50-3.50) K/uL [place] # (Auto) (0.00-1.00) K/uL Eos # (Auto) (0.00-0.50) K/uL Baso # (Auto) (0.00-0.20) K/uL PT (9.8-11.7) SEC INR APTT (22.1-29.8) SEC D-Dimer, Quantitative (0-400) ng/mL Sodium (136-145) mmol/L Potassium (3.5-5.1) mmol/L Chloride (98-107) mmol/L Carbon Dioxide (21.0-32.0) mmol/L BUN (7-18) mg/dL Creatinine (0.51-1.17) mg/dL Est Cr Clr Drug Dosing Estimated GFR (MDRD) mL/min Glucose (74-106) mg/dL Hemoglobin A1c (4.3-5.7) % Lactic Acid 1.1 (0.4-2.0) mmol/L Uric Acid (2.6-7.2) mg/dL Calcium (8.5-10.1) mg/dL Magnesium (1.8-2.4) mg/dL Total Bilirubin (0.2-1.0) mg/dL AST (15-37) U/L ALT (12-78) U/L Alkaline Phosphatase (46-116) IU/L Creatine Kinase (26-308) U/L Creatine Kinase Index (0.0-2.5) % CK-MB (CK-2) (0.00-3.60) ng/mL Troponin I (0.000-0.056) ng/mL NT-Pro-B Natriuret Pep (0-125) pg/mL Total Protein (6.4-8.2) g/dL Albumin (3.4-5.0) g/dL Triglycerides (30-150) mg/dL Cholesterol (100-200) mg/dL LDL Cholesterol, Calc (0-100) mg/dL HDL Cholesterol (40-60) mg/dL TSH, Ultra Sensitive (0.358-3.740) mIU/mL Med Orders - Current: Current Medications Acetaminophen (Tylenol) 650 mg PO Q4H PRN PRN Reason: Pain Allopurinol (Zyloprim) 100 mg PO DAILY [facility] Cholecalciferol (Vitamin D3) 2,000 units PO DAILY [facility] Citalopram Hydrobromide (Celexa) 10 mg PO DAILY [facility] Cranberry (Cranberry) 1,000 mg PO DAILY [facility] Enalapril Maleate (Vasotec) 20 mg PO DAILY [facility] Enoxaparin Sodium (Lovenox) 100 mg SUBCUT Q24H [facility] Last Admin: 07/12/17 17:03 Dose: 100 mg Furosemide (Lasix) 40 mg IVPUSH Q8H [facility] Last Admin: 07/12/17 22:08 Dose: 40 mg Lactobacillus Rhamnosus (Culturelle) 2 cap PO DAILY [facility] Levothyroxine Sodium (Synthroid) 50 mcg PO ACBREAKFAST [facility] Last Admin: 07/13/17 07:56 Dose: 50 mcg Magnesium Oxide (Magnesium Oxide) 400 mg PO QPM [facility] Last Admin: 07/12/17 17:02 Dose: 400 mg Metoprolol Tartrate (Lopressor) 25 mg PO BID [facility] Multivitamins/Minerals/Vitamin C (Tab-A-Louise) 1 tab PO DAILY [facility] Potassium Chloride (Klor-Con M20) 20 meq PO TID [facility] Last Admin: 07/12/17 17:02 Dose: 20 meq Simvastatin (Zocor) 30 mg PO BEDTIME [facility] Last Admin: 07/12/17 19:55 Dose: 30 mg Sodium Chloride (Saline Flush) 10 ml FLUSH ASDIRECTED PRN PRN Reason: Keep Vein Open Last Admin: 07/12/17 22:08 Dose: 10 ml Sodium Chloride (Saline Flush) 10 ml FLUSH Q12HR PRN PRN Reason: Keep Vein Open Temazepam (Restoril) 15 mg PO BEDTIME PRN PRN Reason: Insomnia Vit C/Vit E/Zinc/Copper/Lutein (Ocuvite Lutein) 1 each PO DAILY [facility] Discontinued Medications Enoxaparin Sodium (Lovenox) 90 mg SUBCUT Q24H [facility] Last Admin: 07/12/17 17:03 Dose: Not Given Famotidine (Pepcid) 40 mg IVPUSH ONETIME ONE Stop: 07/12/17 11:40 Last Admin: 07/12/17 12:03 Dose: 40 mg Furosemide (Lasix) 60 mg IVPUSH NOW ONE Stop: 07/12/17 14:14 Last Admin: 07/12/17 14:17 Dose: 60 mg Iopamidol (Isovue-370 (76%)) 100 ml IVPUSH ONETIME ONE Stop: 07/12/17 13:17 Last Admin: 07/12/17 13:50 Dose: 100 ml Metoprolol Tartrate (Lopressor) 2.5 mg IVPUSH ONETIME ONE Stop: 07/12/17 11:40 Last Admin: 07/12/17 12:03 Dose: 2.5 mg Metoprolol Tartrate (Lopressor) 50 mg PO ONETIME ONE Stop: 07/12/17 13:34 Last Admin: 07/12/17 14:01 Dose: 50 mg - Exam Quality Assessment: Supplemental Oxygen, DVT Prophylaxis General: Alert, Oriented, Cooperative, No Acute Distress Neck: Supple, Trachea Midline, No JVD Lungs: Clear to Auscultation, Normal Respiratory Effort Cardiovascular: Regular Rate, Regular Rhythm, Murmurs GI/Abdominal Exam: Normal Bowel Sounds, Soft, Non-Tender, No Organomegaly, No Distention Extremities: Normal Inspection, Normal Range of Motion, Non-Tender, No Pedal Edema, Normal Capillary Refill Peripheral Pulses: 1+: Dorsalis Pedis (L), Dorsalis Pedis (R) Skin: Warm, Dry, Intact Neurological: No New Focal Deficit Psy/Mental Status: Alert, Normal Affect, Normal Mood, Anxious - Problem List & Annotations (1) CHF (congestive heart failure) SNOMED Code(s): 43400701 Code(s): I50.9 - HEART FAILURE, UNSPECIFIED Status: Acute Priority: High Current Visit: Yes Onset Date: 07/12/17 Qualifiers: Heart failure type: unspecified Heart failure chronicity: acute Qualified Code(s): I50.9 - Heart failure, unspecified (2) D-dimer, elevated SNOMED Code(s): 985721125 Code(s): R79.89 - OTHER SPECIFIED ABNORMAL FINDINGS OF BLOOD CHEMISTRY Status: Acute Priority: High Current Visit: Yes Onset Date: 07/12/17 (3) Hypothyroidism (acquired) SNOMED Code(s): 814681581 Code(s): E03.9 - HYPOTHYROIDISM, UNSPECIFIED Status: Acute Priority: [facility] Current Visit: Yes Onset Date: 07/12/17 (4) Tachycardia SNOMED Code(s): 0736764 Code(s): R00.0 - TACHYCARDIA, UNSPECIFIED Status: Acute Priority: High Current Visit: Yes Onset Date: ~07/05/17 (5) COPD (chronic obstructive pulmonary disease) SNOMED Code(s): 68888934 Code(s): J44.9 - CHRONIC OBSTRUCTIVE PULMONARY DISEASE, UNSPECIFIED Status : Chronic Current Visit: Yes Qualifiers: COPD type: emphysema Emphysema type: panlobular Qualified Code(s): J43.1 - Panlobular emphysema - Problem List Review Problem List Initiated/Reviewed/Updated: Yes - Plan Plan:: 07/13/2017 Patient feels much better, was having palpitations the last few days. Has been under a lot of stress, recently lost her son in law to a massive [place]. Patient had not been sleeping. D Dimer trended down today, venous doppler results pending. Patient will need echocardiogram and possible cardiolite as outpatient. Patient has had echo in past, can not remember the date. Will decrease IV Lasix, kidney function slight increased. Recheck labs in the morning. Continue on telemetry. Discussed with the patient started zoloft for her recent stress, she would like to start the medication. Continues to need inpatient stay for cardiac monitoring and CHF monitoring. Supprt given Khadra Burroughs,CAD APPLICATION SUPPORT SPECIALIST
[2017-07-13] MEDS ORDERED: Sertraline 25 MG Tab PO SCH (08:30)
[2017-07-13] MEDS: Furosemide 40 MG/4 ML VIAL IVPUSH SCH ×2 (08:46→09:29)
[2017-07-13] MEDS: Potassium Chloride 20 MEQ Tab.ER PO SCH ×2 (08:47→09:30)
[2017-07-13] MEDS: Citalopram 20 MG Tab PO SCH (09:24)
[2017-07-13] MEDS: Cranberry 500 MG Cap PO SCH (09:25)
[2017-07-13] MEDS: Lactobacillus Rhamnosus GG (Probiotic) Cap PO SCH (09:25)
[2017-07-13] MEDS: Metoprolol Tartrate 25 MG Tab PO SCH ×2 (09:26→17:08)
[2017-07-13] MEDS: Lutein/Minerals/Vitamin C/Vitamin E Acetate Cap PO SCH (09:27)
[2017-07-13] MEDS: Enalapril 5 MG Tab PO SCH (09:27)
[2017-07-13] MEDS: Multivitamin Tab PO SCH (09:27)
[2017-07-13] MEDS: Cholecalciferol (Vitamin D3) 1,000 Unit Tab PO SCH (09:28)
[2017-07-13] MEDS: Allopurinol 100 MG Tab PO SCH (09:29)
[2017-07-13] MEDS: Sodium Chloride 0.9% 10 ML Syringe FLUSH PRN (09:32)
[2017-07-13] MEDS: Acetaminophen 325 MG Tab PO PRN ×2 (10:44→19:37)
[2017-07-13] MEDS: Enoxaparin 100 MG/1 ML Syringe SUBCUT SCH (16:26)
[2017-07-13] MEDS: Magnesium Oxide 400 MG Tab PO SCH (17:08)
[2017-07-13] MEDS: Simvastatin 20 MG Tab PO SCH (19:37)
[2017-07-14] MEDS: Citalopram 20 MG Tab PO SCH (07:43)
[2017-07-14] MEDS: Metoprolol Tartrate 25 MG Tab PO SCH (07:43)
[2017-07-14] MEDS: Levothyroxine 50 MCG Tab PO SCH (07:44)
[2017-07-14] MEDS: Lutein/Minerals/Vitamin C/Vitamin E Acetate Cap PO SCH (07:44)
[2017-07-14] MEDS: Cranberry 500 MG Cap PO SCH (07:44)
[2017-07-14] MEDS: Enalapril 5 MG Tab PO SCH (07:44)
[2017-07-14] MEDS: Cholecalciferol (Vitamin D3) 1,000 Unit Tab PO SCH (07:45)
[2017-07-14] MEDS: Multivitamin Tab PO SCH (07:46)
[2017-07-14] MEDS: Allopurinol 100 MG Tab PO SCH (07:48)
[2017-07-14] MEDS: Lactobacillus Rhamnosus GG (Probiotic) Cap PO SCH (07:48)
[2017-07-14] MEDS: Potassium Chloride 20 MEQ Tab.ER PO SCH (07:49)
[2017-07-14] MEDS: Furosemide 40 MG/4 ML VIAL IVPUSH SCH (07:49)
[2017-07-14 07:50] VITALS: BP 121/56
[2017-07-14] MEDS: Sodium Chloride 0.9% 10 ML Syringe FLUSH PRN (07:50)
--- NOTE | 2017-07-14 09:24 | PCM.PN ---
- General Info Date of Service: 07/14/17 Admission Dx/Problem (Free Text): CHF COPD Anxiety with recent family stressor and loss of loved one Functional Status: Reports: Pain Controlled, Tolerating Diet, Ambulating - Review of Systems General: Reports: No Symptoms HEENT: Reports: No Symptoms Pulmonary: Reports: No Symptoms Cardiovascular: Reports: No Symptoms Gastrointestinal: Reports: No Symptoms Genitourinary: Reports: No Symptoms Musculoskeletal: Reports: No Symptoms Skin: Reports: No Symptoms Neurological: Reports: No Symptoms Psychiatric: Reports: Depression (recent loss of son of law is causing some anxiety and stress, lack of sleep), Anxiety - Patient Data Vitals - Most Recent: Last Vital Signs Temp 97.9 F 07/14/17 04:00 Pulse 74 07/14/17 07:43 Resp 18 07/14/17 04:00 BP 121/56 L 07/14/17 07:44 Pulse Ox 95 07/14/17 04:00 Weight - Most Recent: 234 lb 14.4 oz I&O - Last 24 Hours: Intake & Output 07/13/17 07/14/17 07/14/17 22:59 06:59 14:59 Intake Total 240 Output Total 250 150 Balance -10 -150 Lab Results Last 24 Hours: Laboratory Results - last 24 hr 07/14/17 07/14/17 07/14/17 Range/Units 07:14 07:14 07:14 WBC 8.3 (4.0-10.2) K/uL RBC 4.45 (3.77-5.09) M/uL Hgb 14.0 (11.7-15.5) g/dL Hct 41.5 (34.0-46.0) % MCV 93.3 (84.0-98.0) fL MCH 31.5 (28.2-33.3) pg MCHC 33.7 (31.7-36.0) g/dL RDW 14.9 H (11.2-14.1) % Plt Count 242 (150-350) K/uL Neut % (Auto) 41.8 L (45.0-80.0) % Lymph % (Auto) 37.7 (10.0-50.0) % [place] % (Auto) 15.0 H (2.0-14.0) % Eos % (Auto) 5.0 (0.0-5.0) % Baso % (Auto) 0.5 (0.0-2.0) % Neut # (Auto) 3.47 (1.40-7.00) K/uL Lymph # (Auto) 3.14 (0.50-3.50) K/uL [place] # (Auto) 1.25 H (0.00-1.00) K/uL Eos # (Auto) 0.42 (0.00-0.50) K/uL Baso # (Auto) 0.04 (0.00-0.20) K/uL D-Dimer, Quantitative 455 H (0-400) ng/mL Sodium 136 (136-145) mmol/L Potassium 4.7 (3.5-5.1) mmol/L Chloride 102 (98-107) mmol/L Carbon Dioxide 25.6 (21.0-32.0) mmol/L BUN 33 H (7-18) mg/dL Creatinine 1.74 H (0.51-1.17) mg/dL Est Cr Clr Drug Dosing 20.89 mL/min Estimated GFR (MDRD) 28 mL/min Glucose 95 (74-106) mg/dL Calcium 9.3 (8.5-10.1) mg/dL Total Bilirubin 0.7 (0.2-1.0) mg/dL AST 32 (15-37) U/L ALT 24 (12-78) U/L Alkaline Phosphatase 82 (46-116) IU/L Troponin I 0.008 (0.000-0.056) ng/mL NT-Pro-B Natriuret Pep 564 H (0-125) pg/mL Total Protein 8.3 H (6.4-8.2) g/dL Albumin 3.2 L (3.4-5.0) g/dL Med Orders - Current: Current Medications Acetaminophen (Tylenol) 650 mg PO Q4H PRN PRN Reason: Pain Last Admin: 07/13/17 19:37 Dose: 650 mg Allopurinol (Zyloprim) 100 mg PO DAILY [facility] Last Admin: 07/14/17 07:48 Dose: 100 mg Cholecalciferol (Vitamin D3) 2,000 units PO DAILY [facility] Last Admin: 07/14/17 07:45 Dose: 2,000 units Citalopram Hydrobromide (Celexa) 10 mg PO DAILY [facility] Last Admin: 07/14/17 07:43 Dose: 10 mg Cranberry (Cranberry) 1,000 mg PO DAILY [facility] Last Admin: 07/14/17 07:44 Dose: 1,000 mg Enalapril Maleate (Vasotec) 20 mg PO DAILY [facility] Last Admin: 07/14/17 07:44 Dose: 20 mg Enoxaparin Sodium (Lovenox) 100 mg SUBCUT Q24H [facility] Last Admin: 07/13/17 16:26 Dose: 100 mg Furosemide (Lasix) 40 mg IVPUSH DAILY [facility] Last Admin: 07/14/17 07:49 Dose: 40 mg Lactobacillus Rhamnosus (Culturelle) 2 cap PO DAILY [facility] Last Admin: 07/14/17 07:48 Dose: 2 cap Levothyroxine Sodium (Synthroid) 50 mcg PO ACBREAKFAST [facility] Last Admin: 07/14/17 07:44 Dose: 50 mcg Magnesium Oxide (Magnesium Oxide) 400 mg PO QPM [facility] Last Admin: 07/13/17 17:08 Dose: 400 mg Metoprolol Tartrate (Lopressor) 25 mg PO BID [facility] Last Admin: 07/14/17 07:43 Dose: 25 mg Multivitamins/Minerals/Vitamin C (Tab-A-Louise) 1 tab PO DAILY [facility] Last Admin: 07/14/17 07:46 Dose: 1 tab Potassium Chloride (Klor-Con M20) 20 meq PO DAILY [facility] Last Admin: 07/14/17 07:49 Dose: 20 meq Simvastatin (Zocor) 30 mg PO BEDTIME [facility] Last Admin: 07/13/17 19:37 Dose: 30 mg Sodium Chloride (Saline Flush) 10 ml FLUSH ASDIRECTED PRN PRN Reason: Keep Vein Open Last Admin: 07/14/17 07:50 Dose: 10 ml Sodium Chloride (Saline Flush) 10 ml FLUSH Q12HR PRN PRN Reason: Keep Vein Open Last Admin: 07/13/17 09:39 Dose: 10 ml Temazepam (Restoril) 15 mg PO BEDTIME PRN PRN Reason: Insomnia Vit C/Vit E/Zinc/Copper/Lutein (Ocuvite Lutein) 1 each PO DAILY [facility] Last Admin: 07/14/17 07:44 Dose: 1 each Discontinued Medications Enoxaparin Sodium (Lovenox) 90 mg SUBCUT Q24H [facility] Last Admin: 07/12/17 17:03 Dose: Not Given Famotidine (Pepcid) 40 mg IVPUSH ONETIME ONE Stop: 07/12/17 11:40 Last Admin: 07/12/17 12:03 Dose: 40 mg Furosemide (Lasix) 60 mg IVPUSH NOW ONE Stop: 07/12/17 14:14 Last Admin: 07/12/17 14:17 Dose: 60 mg Furosemide (Lasix) 40 mg IVPUSH Q8H [facility] Last Admin: 07/13/17 08:46 Dose: Not Given Iopamidol (Isovue-370 (76%)) 100 ml IVPUSH ONETIME ONE Stop: 07/12/17 13:17 Last Admin: 07/12/17 13:50 Dose: 100 ml Metoprolol Tartrate (Lopressor) 2.5 mg IVPUSH ONETIME ONE Stop: 07/12/17 11:40 Last Admin: 07/12/17 12:03 Dose: 2.5 mg Metoprolol Tartrate (Lopressor) 50 mg PO ONETIME ONE Stop: 07/12/17 13:34 Last Admin: 07/12/17 14:01 Dose: 50 mg Potassium Chloride (Klor-Con M20) 20 meq PO TID [facility] Last Admin: 07/13/17 08:47 Dose: Not Given Sertraline HCl (Zoloft) 25 mg PO DAILY [facility] - Exam General: Alert, Oriented, Cooperative, No Acute Distress HEENT: Pupils Equal, Pupils Reactive, EOMI, Mucous Membr. Moist/[place] P[place] Neck: Supple, Trachea Midline, No JVD Lungs: Clear to Auscultation, Normal Respiratory Effort Cardiovascular: Regular Rate, Regular Rhythm, Murmurs GI/Abdominal Exam: Normal Bowel Sounds, Soft, Non-Tender, No Organomegaly Back Exam: Normal Inspection Extremities: Normal Inspection, Normal Range of Motion, No Pedal Edema Peripheral Pulses: 1+: Dorsalis Pedis (L), Dorsalis Pedis (R) Skin: Warm, Dry, Intact Neurological: No New Focal Deficit Psy/Mental Status: Alert, Normal Affect, Normal Mood - Problem List & Annotations (1) CHF (congestive heart failure) SNOMED Code(s): 88195349 Code(s): I50.9 - HEART FAILURE, UNSPECIFIED Status: Acute Priority: High Current Visit: Yes Onset Date: 07/12/17 Qualifiers: Heart failure type: unspecified Heart failure chronicity: acute Qualified Code(s): I50.9 - Heart failure, unspecified (2) D-dimer, elevated SNOMED Code(s): 517423808 Code(s): R79.89 - OTHER SPECIFIED ABNORMAL FINDINGS OF BLOOD CHEMISTRY Status: Acute Priority: High Current Visit: Yes Onset Date: 07/12/17 (3) Hypothyroidism (acquired) SNOMED Code(s): 331212354 Code(s): E03.9 - HYPOTHYROIDISM, UNSPECIFIED Status: Acute Priority: High Current Visit: Yes Onset Date: 07/12/17 (4) Tachycardia SNOMED Code(s): 1454047 Code(s): R00.0 - TACHYCARDIA, UNSPECIFIED Status: Acute Priority: High Current Visit: Yes Onset Date: ~07/05/17 (5) COPD (chronic obstructive pulmonary disease) SNOMED Code(s): 51847761 Code(s): J44.9 - CHRONIC OBSTRUCTIVE PULMONARY DISEASE, UNSPECIFIED Status : Chronic Current Visit: Yes Qualifiers: COPD type: emphysema Emphysema type: panlobular Qualified Code(s): J43.1 - Panlobular emphysema - Problem List Review Problem List Initiated/Reviewed/Updated: Yes - My Orders Last 24 Hours: My Active Orders 07/13/17 08:26 Communication Order [RC] ROUTINE 07/13/17 08:30 Furosemide [Lasix] 40 mg IVPUSH DAILY 07/13/17 09:00 Potassium Chloride [Klor-Con M20] 20 meq PO DAILY 07/15/17 05:11 CBC WITH AUTO DIFF [HEME] DAILY COMPREHENSIVE METABOLIC PN,CMP [CHEM] DAILY PRO B-TYPE NATRIUR PEPT,BNPPRO [CHEM] DAILY - Plan Plan:: 07/13/2017 Patient feels much better, was having palpitations the last few days. Has been under a lot of stress, recently lost her son in law to a massive [place]. Patient had not been sleeping. D Dimer trended down today, venous doppler results pending. Patient will need echocardiogram and possible cardiolite as outpatient. Patient has had echo in past, can not remember the date. Will decrease IV Lasix, kidney function slight increased. Recheck labs in the morning. Continue on telemetry. Discussed with the patient started zoloft for her recent stress, she would like to start the medication. Continues to need inpatient stay for cardiac monitoring and CHF monitoring. Supprt given Khadra Burroughs CNP 07/14/2017 Patient feeling better today and wanting to come home. Kidney level increased most likely from IV Lasix, BNP decreasing. Patient states she has monitored and watched kidney levels with MARYANN Irby at the clinic. Will order echo and cardiolite as outpatient. Patient will follow up at clinic on June. Patient will drink fluids and monitor weights. Khadra Burroughs,MAINTENANCE MECHANIC HELPER
--- NOTE | 2017-07-14 09:32 | PCM.DCSUM1 ---
Discharge Summary - Hospital Course Free Text/Narrative:: Patient was admitted with heart palpitations. Patient states having a lot of stress and not sleeping much at night due to loss of son in law. CT scan of chest negative for PE and venous dopplers negative. DDimer was elevated but trended downward during hospitalizations. ProBNP slightly elevated and patient was started on aggressive IV Lasix which was decreased down to daily Lasix. Cr level trended upward most likely from the IV Lasix. Patient started on Celexa for anxiety and depression. Troponins monitored through the hospitalization and remained within normal limits. - Discharge Data Discharge Date: 07/14/17 Discharge Disposition: Home, Self-Care 01 Condition: Fair - Discharge Diagnosis/Problem(s) (1) CHF (congestive heart failure) SNOMED Code(s): 12746359 ICD Code: I50.9 - HEART FAILURE, UNSPECIFIED Status: Acute Priority: High Current Visit: Yes Onset Date: 07/12/17 Qualifiers: Heart failure type: unspecified Heart failure chronicity: acute Qualified Code(s): I50.9 - Heart failure, unspecified (2) D-dimer, elevated SNOMED Code(s): 008705702 ICD Code: R79.89 - OTHER SPECIFIED ABNORMAL FINDINGS OF BLOOD CHEMISTRY Status: Acute Priority: High Current Visit: Yes Onset Date: 07/12/17 (3) Hypothyroidism (acquired) SNOMED Code(s): 829463845 ICD Code: E03.9 - HYPOTHYROIDISM, UNSPECIFIED Status: Acute Priority: High Current Visit: Yes Onset Date: 07/12/17 (4) Tachycardia SNOMED Code(s): 9810287 ICD Code: R00.0 - TACHYCARDIA, UNSPECIFIED Status: Acute Priority: High Current Visit: Yes Onset Date: ~07/05/17 (5) COPD (chronic obstructive pulmonary disease) SNOMED Code(s): 73444137 ICD Code: J44.9 - CHRONIC OBSTRUCTIVE PULMONARY DISEASE, UNSPECIFIED Status : Chronic Current Visit: Yes Qualifiers: COPD type: emphysema Emphysema type: panlobular Qualified Code(s): J43.1 - Panlobular emphysema - Patient Instructions Diet: Usual Diet as Tolerated Diet, Other: Patient to drink at least 8 to 10, 8 ounces of fluid daily Activity: As Tolerated Driving: May Drive Today Showering/Bathing: May Shower - Discharge Plan Prescriptions/Med Rec: Citalopram [Citalopram HBr] 10 mg PO DAILY #90 tablet Furosemide [Lasix] 20 mg PO DAILY PRN #10 tab PRN Reason: Other Levothyroxine [Synthroid] 50 mcg PO ACBREAKFAST #90 tablet Metoprolol Tartrate [Lopressor] 25 mg PO BID 90 Days tablet Temazepam [Restoril] 15 mg PO BEDTIME PRN #30 cap PRN Reason: Insomnia Home Medications: Home Meds Allopurinol 100 mg PO DAILY 11/03/15 [History] Cholecalciferol (Vitamin D3) [Vitamin D3] 2,000 unit PO DAILY 11/03/15 [History] Cranberry 1,000 mg PO DAILY 11/03/15 [History] L. Acidophilus/Pectin, [place] [Acidophilus Capsule] 2 each PO DAILY 11/03/15 [ History] Lutein/Minerals/Vit A,C & E [I-Louise] 1 caplet PO DAILY 11/03/15 [History] Multivitamin [Multivitamins] 1 each PO DAILY 11/03/15 [History] Simvastatin 30 mg PO BEDTIME 11/03/15 [History] Enalapril [Vasotec] 20 mg PO DAILY 07/12/17 [History] Citalopram [Citalopram HBr] 10 mg PO DAILY #90 tablet 07/14/17 [Rx] Furosemide [Lasix] 20 mg PO DAILY PRN #10 tab 07/14/17 [Rx] Levothyroxine [Synthroid] 50 mcg PO ACBREAKFAST #90 tablet 07/14/17 [Rx] Metoprolol Tartrate [Lopressor] 25 mg PO BID 90 Days tablet 07/14/17 [Rx] Temazepam [Restoril] 15 mg PO BEDTIME PRN #30 cap 07/14/17 [Rx] Patient Handouts: Levothyroxine tablets, Hypothyroidism, Enoxaparin injection, Sinus Tachycardia, Heart Failure Forms: ED Department Discharge Referrals: Carolann Richards PA [Primary Care Provider] - - Discharge Summary/Plan Comment DC Time >30 min.: No Discharge Summary/Plan Comment: Patient is discharged to home with her spouse. Patient needs continual monitoring of kidney function but refuses to stay. Will stop Lasix daily and use Lasix as needed with 3 pound weight gain in 24 hours as needed. patient will push fluids and follow up with Carolann WOLF on July 18, 2017. Will need echocardiogram and cardiolite stress test as outpatient. Continue on celexa for anxiety and depression, and restoril as needed for sleep. Recommended counseling patient refuses for now. Continue on metoprolol for rate control and blood pressure control. Patient and spouse verbalized understanding. Khadra Burroughs CNP - Patient Data Vitals - Most Recent: Last Vital Signs Temp 97.9 F 07/14/17 04:00 Pulse 74 07/14/17 07:43 Resp 18 07/14/17 04:00 BP 121/56 L 07/14/17 07:44 Pulse Ox 95 07/14/17 04:00 Weight - Most Recent: 234 lb 14.4 oz I&O - Last 24 hours: Intake & Output 07/13/17 07/14/17 07/14/17 22:59 06:59 14:59 Intake Total 240 560 Output Total 250 150 Balance -10 -150 560 Lab Results - Last 24 hrs: Laboratory Results - last 24 hr 07/14/17 07/14/17 07/14/17 Range/Units 07:14 07:14 07:14 WBC 8.3 (4.0-10.2) K/uL RBC 4.45 (3.77-5.09) M/uL Hgb 14.0 (11.7-15.5) g/dL Hct 41.5 (34.0-46.0) % MCV 93.3 (84.0-98.0) fL MCH 31.5 (28.2-33.3) pg MCHC 33.7 (31.7-36.0) g/dL RDW 14.9 H (11.2-14.1) % Plt Count 242 (150-350) K/uL Neut % (Auto) 41.8 L (45.0-80.0) % Lymph % (Auto) 37.7 (10.0-50.0) % [place] % (Auto) 15.0 H (2.0-14.0) % Eos % (Auto) 5.0 (0.0-5.0) % Baso % (Auto) 0.5 (0.0-2.0) % Neut # (Auto) 3.47 (1.40-7.00) K/uL Lymph # (Auto) 3.14 (0.50-3.50) K/uL [place] # (Auto) 1.25 H (0.00-1.00) K/uL Eos # (Auto) 0.42 (0.00-0.50) K/uL Baso # (Auto) 0.04 (0.00-0.20) K/uL D-Dimer, Quantitative 455 H (0-400) ng/mL Sodium 136 (136-145) mmol/L Potassium 4.7 (3.5-5.1) mmol/L Chloride 102 (98-107) mmol/L Carbon Dioxide 25.6 (21.0-32.0) mmol/L BUN 33 H (7-18) mg/dL Creatinine 1.74 H (0.51-1.17) mg/dL Est Cr Clr Drug Dosing 20.89 mL/min Estimated GFR (MDRD) 28 mL/min Glucose 95 (74-106) mg/dL Calcium 9.3 (8.5-10.1) mg/dL Total Bilirubin 0.7 (0.2-1.0) mg/dL AST 32 (15-37) U/L ALT 24 (12-78) U/L Alkaline Phosphatase 82 (46-116) IU/L Troponin I 0.008 (0.000-0.056) ng/mL NT-Pro-B Natriuret Pep 564 H (0-125) pg/mL Total Protein 8.3 H (6.4-8.2) g/dL Albumin 3.2 L (3.4-5.0) g/dL Med Orders - Current: Current Medications Acetaminophen (Tylenol) 650 mg PO Q4H PRN PRN Reason: Pain Last Admin: 07/13/17 19:37 Dose: 650 mg Allopurinol (Zyloprim) 100 mg PO DAILY [facility] Last Admin: 07/14/17 07:48 Dose: 100 mg Cholecalciferol (Vitamin D3) 2,000 units PO DAILY [facility] Last Admin: 07/14/17 07:45 Dose: 2,000 units Citalopram Hydrobromide (Celexa) 10 mg PO DAILY [facility] Last Admin: 07/14/17 07:43 Dose: 10 mg Cranberry (Cranberry) 1,000 mg PO DAILY [facility] Last Admin: 07/14/17 07:44 Dose: 1,000 mg Enalapril Maleate (Vasotec) 20 mg PO DAILY [facility] Last Admin: 07/14/17 07:44 Dose: 20 mg Enoxaparin Sodium (Lovenox) 100 mg SUBCUT Q24H [facility] Last Admin: 07/13/17 16:26 Dose: 100 mg Furosemide (Lasix) 40 mg IVPUSH DAILY [facility] Last Admin: 07/14/17 07:49 Dose: 40 mg Lactobacillus Rhamnosus (Culturelle) 2 cap PO DAILY [facility] Last Admin: 07/14/17 07:48 Dose: 2 cap Levothyroxine Sodium (Synthroid) 50 mcg PO ACBREAKFAST [facility] Last Admin: 07/14/17 07:44 Dose: 50 mcg Magnesium Oxide (Magnesium Oxide) 400 mg PO QPM [facility] Last Admin: 07/13/17 17:08 Dose: 400 mg Metoprolol Tartrate (Lopressor) 25 mg PO BID [facility] Last Admin: 07/14/17 07:43 Dose: 25 mg Multivitamins/Minerals/Vitamin C (Tab-A-Louise) 1 tab PO DAILY [facility] Last Admin: 07/14/17 07:46 Dose: 1 tab Potassium Chloride (Klor-Con M20) 20 meq PO DAILY [facility] Last Admin: 07/14/17 07:49 Dose: 20 meq Simvastatin (Zocor) 30 mg PO BEDTIME [facility] Last Admin: 07/13/17 19:37 Dose: 30 mg Sodium Chloride (Saline Flush) 10 ml FLUSH ASDIRECTED PRN PRN Reason: Keep Vein Open Last Admin: 07/14/17 07:50 Dose: 10 ml Sodium Chloride (Saline Flush) 10 ml FLUSH Q12HR PRN PRN Reason: Keep Vein Open Last Admin: 07/13/17 09:39 Dose: 10 ml Temazepam (Restoril) 15 mg PO BEDTIME PRN PRN Reason: Insomnia Vit C/Vit E/Zinc/Copper/Lutein (Ocuvite Lutein) 1 each PO DAILY [facility] Last Admin: 07/14/17 07:44 Dose: 1 each Discontinued Medications Enoxaparin Sodium (Lovenox) 90 mg SUBCUT Q24H [facility] Last Admin: 07/12/17 17:03 Dose: Not Given Famotidine (Pepcid) 40 mg IVPUSH ONETIME ONE Stop: 07/12/17 11:40 Last Admin: 07/12/17 12:03 Dose: 40 mg Furosemide (Lasix) 60 mg IVPUSH NOW ONE Stop: 07/12/17 14:14 Last Admin: 07/12/17 14:17 Dose: 60 mg Furosemide (Lasix) 40 mg IVPUSH Q8H [facility] Last Admin: 07/13/17 08:46 Dose: Not Given Iopamidol (Isovue-370 (76%)) 100 ml IVPUSH ONETIME ONE Stop: 07/12/17 13:17 Last Admin: 07/12/17 13:50 Dose: 100 ml Metoprolol Tartrate (Lopressor) 2.5 mg IVPUSH ONETIME ONE Stop: 07/12/17 11:40 Last Admin: 07/12/17 12:03 Dose: 2.5 mg Metoprolol Tartrate (Lopressor) 50 mg PO ONETIME ONE Stop: 07/12/17 13:34 Last Admin: 07/12/17 14:01 Dose: 50 mg Potassium Chloride (Klor-Con M20) 20 meq PO TID [facility] Last Admin: 07/13/17 08:47 Dose: Not Given Sertraline HCl (Zoloft) 25 mg PO DAILY [facility]
== END 2017-07-14 10:40 | disposition home or self-care (01) | DRG 293 ==
LOC: LL.ED 11:37 → LL.MS 15:16
PROVIDERS: ADMIT Family Medicine; ATTEND Family Medicine
DX: I13.0 Hypertensive heart and chronic kidney disease with heart failure and stage 1 through stage 4 chronic kidney disease, or unspecified chronic kidney disease (principal); I50.9 Heart failure, unspecified; E78.5 Hyperlipidemia, unspecified; E87.2 Acidosis; E78.2 Mixed hyperlipidemia; N18.9 Chronic kidney disease, unspecified; R79.1 Abnormal coagulation profile; E83.42 Hypomagnesemia; R00.2 Palpitations; R07.9 Chest pain, unspecified; R00.0 Tachycardia, unspecified; K76.0 Fatty (change of) liver, not elsewhere classified; H54.7 Unspecified visual loss; E78.1 Pure hyperglyceridemia; I08.0 Rheumatic disorders of both mitral and aortic valves; K57.90 Diverticulosis of intestine, part unspecified, without perforation or abscess without bleeding; R15.9 Full incontinence of feces; K21.9 Gastro-esophageal reflux disease without esophagitis; K64.9 Unspecified hemorrhoids; M19.90 Unspecified osteoarthritis, unspecified site; M06.9 Rheumatoid arthritis, unspecified; M10.9 Gout, unspecified; G62.9 Polyneuropathy, unspecified; I44.30 Unspecified atrioventricular block; F41.8 Other specified anxiety disorders; R79.89 Other specified abnormal findings of blood chemistry; T50.1X5A Adverse effect of loop [high-ceiling] diuretics, initial encounter; G47.00 Insomnia, unspecified; E66.9 Obesity, unspecified; Z63.4 Disappearance and death of family member; Z68.36 Body mass index [BMI] 36.0-36.9, adult; Z90.49 Acquired absence of other specified parts of digestive tract; Z88.1 Allergy status to other antibiotic agents; Z91.19 Patient's noncompliance with other medical treatment and regimen; Z87.440 Personal history of urinary (tract) infections; Z86.010 Personal history of colon polyps; Z88.8 Allergy status to other drugs, medicaments and biological substances; Z79.899 Other long term (current) drug therapy; J44.9 Chronic obstructive pulmonary disease, unspecified
CPT/HCPCS: 36415; 71045; 71275; 80053; 80061; 82550; 82553; 83036; 83605; 83735; 83880; 84443; 84484; 84550; 85025; 85379; 85610; 85730; 93005; 93970; 96374; 96375; 99285; A9270-GY; J1650; J1940; J3490; J7050; Q9967; S0028

== ENCOUNTER 2018-11-16 09:10 | Day surgery (SDC) | payer MEDICARE, BC ==
[~2018-11-16 09:10] MED LIST: Lactated Ringers 1,000 ML IV SCH; Propofol 200 MG/20 ML SDV ONE; Sodium Chloride 0.9% 10 ML Syringe FLUSH PRN
[2018-11-16] MEDS ORDERED: Propofol 200 MG/20 ML SDV ONE (10:24)
--- NOTE | 2018-11-16 10:24 | PCM.PN ---
- General Info Date of Service: 11/16/18 - Review of Systems Systems Review Comment:: 77-year-old female referred by Carolann Richards for surveillance colonoscopy. She has a history of colon polyps. Her last colonoscopy was 3 years ago. She denies any recent change in bowel pattern or rectal bleeding. Her recent history and physical is reviewed and no significant changes are noted. I discussed the proposed colonoscopy with the patient. She agrees to proceed accepting risks. - Patient Data Vitals - Most Recent: Last Vital Signs Temp 98.4 F 11/16/18 09:49 Pulse 82 11/16/18 09:49 Resp 20 11/16/18 09:49 BP 110/59 L 11/16/18 09:49 Pulse Ox 96 11/16/18 09:49 Weight - Most Recent: 89.811 kg Lab Results Last 24 Hours: Laboratory Results - last 24 hr 11/16/18 Range/Units 09:39 POC Glucose 100 (65-110) mg/dl Med Orders - Current: Current Medications Lactated Ringer's (Ringers, Lactated) 1,000 mls @ 125 mls/hr IV ASDIRECTED [facility] Last Admin: 11/16/18 09:40 Dose: 125 mls/hr Sodium Chloride (Saline Flush) 10 ml FLUSH ASDIRECTED PRN PRN Reason: Keep Vein Open Discontinued Medications Propofol (Diprivan 20 Ml) Confirm Administered Dose 200 mg .ROUTE .STK-MED ONE Stop: 11/16/18 08:33 - Problem List Review Problem List Initiated/Reviewed/Updated: Yes - Assessment Assessment:: history of colon polyps - Plan Plan:: colonoscopy
--- NOTE | 2018-11-16 10:53 | PCM.OPNOTE ---
- General Post-Op/Procedure Note Date of Surgery/Procedure: 11/16/18 Operative Procedure(s): Incomplete colonoscopy to sigmoid colon Findings: Extensive sigmoid diverticulosis with narrowing which prevented advancement of the colonoscope past this area. Pre Op Diagnosis: History of colon polyps Post-Op Diagnosis: Sigmoid Diverticulosis with strenosis Anesthesia Technique: MAC Primary Surgeon: Yevgeniy Simmons Pathology: none EBL in mLs: 0 Complications: None Condition: Good
[2018-11-16 11:31] VITALS: BP 121/84
--- NOTE | 2018-11-16 17:05 | OR ---
Date of Procedure: 11/16/2018 PREOPERATIVE DIAGNOSIS: History of colon polyps. POSTOPERATIVE DIAGNOSIS: Sigmoid diverticulosis with stenosis. OPERATION PERFORMED: Incomplete colonoscopy to sigmoid colon. INDICATIONS FOR SURGERY: This 77-year-old female is seen today for surveillance colonoscopy. She has a history of colon polyps, and her last colonoscopy was 3 years ago. FINDINGS: The patient has extensive sigmoid diverticulosis. At approximately the 40 cm level, there is narrowing of the sigmoid colon, which prevents safe advancement of the colonoscope past this point. No gross evidence of intrinsic or extrinsic lesion is identified. The mucosa appeared otherwise normal with the exception of the diverticula. The area of diverticulosis does not appear to be acutely inflamed. No polyps were seen in the area visualized. DESCRIPTION OF PROCEDURE: The patient was taken to the operating room. She was given intravenous sedation and with her in the left lateral decubitus position, digital rectal exam was performed showing no rectal masses. The Olympus colonoscope was inserted into the rectum. Retroflexed examination of the rectal canal was performed. The scope was advanced up into the sigmoid region and able to be advanced to approximately the 40 cm level, but there did appear to be narrowing of the colon at this region and despite careful attempts, the scope could not be safely advanced past this point. The mucosa appeared normal and no isolated specific lesion was seen; however, the lumen was narrowed to the point that the scope would not safely advance. With no evidence of complication, the scope was slowly withdrawn re-examining the sigmoid colon and rectum. No other abnormalities were seen. The scope was removed, and the patient was taken from the operating room in satisfactory condition. ESTIMATED BLOOD LOSS: 0. COMPLICATIONS: None. PROGNOSIS: Good. COMMENT: We will schedule barium enema to further evaluate the patient's colon. GEN Simmons MD /[id number]
== END 2018-11-16 12:00 | disposition home or self-care (01) ==
LOC: LL.SDS 09:10
PROVIDERS: ATTEND Surgery
DX: Z12.11 Encounter for screening for malignant neoplasm of colon (principal); K57.30 Diverticulosis of large intestine without perforation or abscess without bleeding; K56.699 Other intestinal obstruction unspecified as to partial versus complete obstruction; I35.0 Nonrheumatic aortic (valve) stenosis; I12.9 Hypertensive chronic kidney disease with stage 1 through stage 4 chronic kidney disease, or unspecified chronic kidney disease; E11.22 Type 2 diabetes mellitus with diabetic chronic kidney disease; N18.3 Chronic kidney disease, stage 3 (moderate); E78.5 Hyperlipidemia, unspecified; E03.9 Hypothyroidism, unspecified; Z88.6 Allergy status to analgesic agent; Z88.8 Allergy status to other drugs, medicaments and biological substances; Z88.1 Allergy status to other antibiotic agents; Z86.010 Personal history of colon polyps; Z79.899 Other long term (current) drug therapy
CPT/HCPCS: 82962; J2704; J7120

== ENCOUNTER 2019-09-28 17:59 | Emergency (ER) | payer MEDICARE, BC ==
--- NOTE | 2019-09-28 18:06 | EDM.PDOC ---
ED HPI GENERAL MEDICAL PROBLEM - General Chief Complaint: General Stated Complaint: fall, contusions Time Seen by Provider: 09/28/19 18:00 Source of Information: Reports: Patient, Old Records ([facility] chart/EMR) History Limitations: Reports: No Limitations - History of Present Illness INITIAL COMMENTS - FREE TEXT/NARRATIVE: The patient was brought to the emergency room via private automobile by her for evaluation of a facial contusion and multiple lacerations secondary to a minor fall while she was shopping at [employer] [facility] at about 16:00 hours. She apparently tripped over a block landing directly onto her face and extended arms. Note that a director education, who was also shopping at the same time, did put dressings on the lacerations with no other treatment or medications prior to arrival. She denies any other significant head injury, loss of consciousness, head aches, visual changes, change in mental status, paresthesias, neurological deficits, neck/back pain, or other complaints or injuries. The patient denies any chest pain/pressure, heart flutter, dizziness, orthostasis, orthopnea, diaphoresis, paresthesias, recent decreased exercise tolerance, or any other anginal-type symptoms. The patient also denies any recent fever, cough, wheezing, dyspnea, etc.. No recent history of abdominal pain, heartburn, nausea, diarrhea, melena, gross hematochezia, or any food intolerance, including fatty foods, etc.. Onset: Today, Sudden Onset Date: 09/28/19 Onset Time: 16:00 Duration: Constant Location: Reports: Face, Upper Extremity, Left. Denies: Head, Neck, Chest, Abdomen, Back, Pelvis, Upper Extremity, Right, Lower Extremity, Right, Radiates to Quality: Reports: Throbbing Severity: Mild Improves with: Reports: None Worsens with: Reports: None Context: Reports: Trauma (As above) Associated Symptoms: Denies: Confusion, Chest Pain, Cough, Diaphoresis, Fever/C hills, Headaches, Loss of Appetite, Malaise, Nausea/Vomiting, Seizure, Shortness of Breath, Syncope, Weakness Treatments CAR DISTRIBUTOR: Reports: Dressing(s) Left Wrist Pain Score (Numeric/FACES): 2 (Hand and facial lacerations) - Related Data Allergies Allergy/AdvReac Type Severity Reaction Status Date / Time aloe vera [From Vagisil] Allergy UNKNOWN Verified 09/28/19 18:01 aspirin Allergy Airway Verified 09/28/19 18:01 Tightness atorvastatin [From Lipitor] Allergy Anxiety Verified 09/28/19 18:01 benzocaine [From Vagisil] Allergy UNKNOWN Verified 09/28/19 18:01 celecoxib [From Celebrex] Allergy Anxiety Verified 09/28/19 18:01 erythromycin base Allergy Hives Verified 09/28/19 18:01 mineral oil [From Vagisil] Allergy UNKNOWN Verified 09/28/19 18:01 resorcinol [From Vagisil] Allergy UNKNOWN Verified 09/28/19 18:01 starch [From Vagisil] Allergy UNKNOWN Verified 09/28/19 18:01 vitamin E (d-alpha Allergy UNKNOWN Verified 09/28/19 18:01 tocopherol) [From Vagisil] vitamins A and D Allergy UNKNOWN Verified 09/28/19 18:01 [From Vagisil] Home Meds: Home Meds Multivitamin [Multivitamins] 1 each PO DAILY 11/03/15 [History] Simvastatin 20 mg PO BEDTIME 11/03/15 [History] Enalapril [Vasotec] 20 mg PO DAILY 07/12/17 [History] Levothyroxine [Synthroid] 50 mcg PO DAILY 11/16/18 [History] Past Medical History HEENT History: Reports: Impaired Vision, Other (See Below). Denies: Allergic Rhinitis, Cataract, Glaucoma, Hard of Hearing, Macular Degeneration, Retinal Detachment Other HEENT History: Patient wears glasses. Cardiovascular History: Reports: Arrhythmia, Heart Murmur, High Cholesterol, Hypertension, Other (See Below). Denies: Afib, Blood Clots/VTE/DVT, CAD, Cardiomyopathy, ID, Syncope Other Cardiovascular History: Aortic valve stenosissevere with additional mild mitral valve insufficiency by echocardiogram. Hypertriglyceridemia. D-dimer elevation on 07/12/17 with negative workup as below. First-degree AV block diagnosed on 07/12/17. Respiratory History: Reports: Intubation, Previous. Denies: Asthma, Bronchitis, Recurrent, COPD, Intubation, Difficult, PE, Pneumonia, Recurrent, Pneumothorax, Sleep Apnea, TB Gastrointestinal History: Reports: Colon Polyp, Diverticulosis, Hemorrhoids, Other (See Below). Denies: Celiac Disease, Cholelithiasis, Chronic Constipation, Chronic Diarrhea, Fecal Incontinence, Gastritis, GERD, Hepatitis, Hiatal Hernia, Jaundice, Pancreatitis, PUD Other Gastrointestinal History: History of polyps including tubular adenoma and sigmoid diverticulosis. Elevated LFTs possibly secondary to fatty liver. Genitourinary History: Reports: Chronic Renal Insuffiency, UTI, Recurrent, Other (See Below). 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 First trimester SAB requiring D&C as below. Otherwise, Full term without complications during pregnancies or deliveries. Menopause at age 50 Musculoskeletal History: Reports: Arthritis, Fracture, Gout, Osteoarthritis, RA. Denies: Back Pain, Chronic, Fibromyalgia, Neck Pain, Chronic, SLE Other Musculoskeletal History: Right ankle fracture in 1996 Neurological History: Reports: Neuropathy, Peripheral. Denies: Cerebral Aneurysms, Concussion, CVA, Headaches, Chronic, Head Trauma, Migraines, MS, Parkinson's, Seizure, TIA Psychiatric History: Reports: None, Anxiety, Depression. Denies: Abuse, Victim of, ADD, ADHD, Addiction, Alzheimers Disease, Dementia, Psych Hospitalization(s), Psychosis, PTSD, Suicide Attempt, Suicidal Ideation Endocrine/Metabolic History: Reports: Diabetes, Type II, Hypomagnesemia, Other (See Below). Denies: Diabetes, Gestational, Diabetes, Type I, Diabetes Mellitus, Type 3c, Hypothyroidism, IDDM Other Endocrine/Metabolic History: Hyponatremia Hematologic History: Reports: None. Denies: Anemia, B12 Deficiency, Blood Transfusion(s), Iron Deficiency Immunologic History: Reports: None. Denies: AIDS, HIV, SLE Oncologic (Cancer) History: Reports: None. Denies: Basal Cell Carcinoma, Breast, Colon, Hodgkin's Lymphoma, Leukemia, Lymphoma, Malignant Melanoma, Non- Hodgkin's Lymphoma, Ovarian, Squamous Cell Carcinoma, Uterine Dermatologic History: Reports: None. Denies: Eczema, Psoriasis - Infectious Disease History Infectious Disease History: Reports: Chicken Pox, Measles, Shingles (Right breast and back region with shingles and subsequent postherpetic neuralgia which is now resolved.). Denies: C-Difficile, Meningitis, Mononucleosis, MRSA, Mumps, Pertussis (Whooping Cough), Rheumatic Fever, Rubella, Scarlet Fever, TB, VRE - Past Surgical History Head Surgeries/Procedures: Reports: None. Denies: Craniotomy HEENT Surgical History: Reports: Cataract Surgery, Oral Surgery, Other (See Below) Other HEENT Surgeries/Procedures: Bilateral cataract surgery in 2018. Multiple teeth extractions. [place] teeth extraction 4 at about age 33. Cardiovascular Surgical History: Reports: None. Denies: Varicose Respiratory Surgical History: Reports: None GI Surgical History: Reports: Appendectomy, Cholecystectomy, Colonoscopy, Polypectomy, Other (See Below). Denies: EGD, Hernia, Abdominal, Hernia, Inguinal, Hernia Repair/Other Other GI Surgeries/Procedures: Last colonoscopy on 11/16/18 was incomplete at 40 cm with subsequent barium enema as below. Multiple polypectomies as above at time of colonoscopy on 11/03/15 with previous colonoscopies on 10/29/10 and 10/26/05. 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 Appendectomy concurrent with probable hymenectomy at age 11 Female Surgical History: Reports: D&C, Dilitation & Evacuation, Other (See Below). Denies: Breast Biopsy, Section, Hysterectomy, Oophorectomy, Salpingo-Oophorectomy, Tubal Ligation Other Female Surgeries/Procedures: Hymenectomy at at age 11. D&C secondary to first trimester SAB. Endocrine Surgical History: Reports: None. Denies: Thyroid Biopsy Neurological Surgical History: Reports: None. Denies: C-Spine, Discectomy, Laminectomy, Lumbar Spine, Sacral Spine, Spinal Fusion, Thoracic Spine, Vertebroplasty Musculoskeletal Surgical History: Reports: None. Denies: Arthroscopic Procedure, Carpal Tunnel, Ganglion Cyst, Joint Replacement, ORIF, Shoulder Surgery Oncologic Surgical History: Reports: None Dermatological Surgical History: Reports: None - Past Imaging History Past Imaging History: Reports: Barium Enema (11/23/18), Cardiac Echo (Last echocardiogram on 07/04/18 with somewhat difficult study and ejection fraction of 5560 percent. Otherwise findings as above. Note previous echocardiogram on .), CAT Scan (CTA of the chest on 07/12/17), Stress Testing (Negative Cardiolite stress test on 07/21/17), Venous Doppler (Bilateral of the legs on 07/13/17.) Social & Family History - Family History HEENT: Reports: Glaucoma, Other (See Below). Denies: Allergic Rhinitis, Macular Degeneration, Retinal Detachment Other HEENT Family History: Mother with glaucoma Cardiac: Reports: Blood Clots/VTE/DVT, CAD, ID, Other (See Below). Denies: Afib, Aneurysm, Arrhythmia, Bypass, Heart Failure, Heart Murmur, High Cholesterol, Hypertension, Syncope Other Cardiac Family History: Maternal grandfather with fatal ID secondary to typhoid exposure at age 50? Mother with fatal postoperative PE shortly after colonoscopy at age 78. Respiratory: Reports: PE, Other (See Below). Denies: Asthma, COPD, Pneumothorax, Sleep Apnea Other Respiratory Family Hisory: Mother with history of PE as above. GI: Reports: Cholelithiasis, Other (See Below). Denies: Celiac Disease, Colon Polyps, GERD, GI bleed, Inflammatory Bowel Disease, Irritable Bowel Syndrome, PUD Other GI Family History: Mother with cholelithiasis : Reports: None. Denies: Renal Calculus, Renal Disease/Insufficiency OBGYN: Reports: None. Denies: Dysfunctional uterine bleeding, Endometriosis, Recurrent Spontaneous Musculoskeletal: Reports: None. Denies: Arthritis, Gout, Osteoarthritis, RA, SLE Neurological: Reports: CVA, TIA, Other (See Below). Denies: Alzheimers Disease, Cerebral Aneurysms, Dementia, Migraines, MS, Parkinson's, Seizure Other Neurological Family History: Brother with TIA at age 76. Father with CVA Psychiatric: Reports: None. Denies: Abuse, Victim of, ADD, ADHD, Anxiety, Depression, Psych Hospitalization(s), PTSD, Suicide Attempt Endocrine/Metabolic: Reports: Diabetes, type II, Other (See Below). Denies: Diabetes, Gestational, Diabetes, Type I, Diabetes Mellitus, Type 3c, Hypothyroidism, IDDM Other Endocrine/Metabolic Family History: Mother and sister with AODM Hematologic: Reports: None. Denies: Anemia, SLE Immunologic: Reports: None. Denies: AIDS, HIV, SLE Dermatologic: Reports: None. Denies: Eczema, Psoriasis Oncologic: Reports: Bone, Lung, Other (See Below). Denies: Breast, Cervix, Colon, Hodgkin's Lymphoma, Leukemia, Lymphoma, Non-Hodgkin's Lymphoma, Ovarian, Skin, Uterine Other Oncologic Family History: Mother with lung cancer with history of tobacco use. Father with possible bone cancer. - Tobacco Use Smoking Status *Q: Never Smoker Tobacco Use Within Last Twelve Months: No Used Tobacco, but Quit: No Smoking Cessation Information Provided To Patient: No Second Hand Smoke Exposure: No - Caffeine Use Caffeine Use: Reports: Coffee (One cup per day). Denies: Energy Drinks, Soda, Tea - Alcohol Use Alcohol Use History: No Days Per Week of Alcohol Use: 0 Number of Drinks Per Day: 0 Number of Drinks Per Day Comment: No previous DWIs, problems with alcohol abuse, etc. 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 ED EXAM, GENERAL - Physical Exam Exam: See Below Exam Limited By: No Limitations General Appearance: Alert, WD/WN, No Apparent Distress Eye Exam: Bilateral Eye: EOMI, Normal Fundi, Normal Inspection (No nystagmus. Patient wearing glasses), Periorbital Changes (Mild bilateral periorbital swelling with borderline ecchymosis with 1 cm lacerations 2 in the left supraorbital area including involvement of the eyebrow), PERRL Ears: Normal External Exam, Normal Canal, Hearing Grossly Normal, Normal TMs Nose: Normal Mucosa, No Blood, Nasal Tenderness (Mild dorsal bridge), Nasal Deformity (Borderline), Nasal Swelling (Mild), Clear Rhinorrhea Throat/Mouth: Normal Lips, Normal Gums (Mild bleeding from the left superior gum secondary to lost tooth), Normal Oropharynx. No: Normal Teeth (Multiple missing teeth with patient carries with left upper first and second anterior teeth missing with incisor her real tooth and other missing tooth actually a bridge) Head: Facial Swelling (Bilateral maxillary swelling and ecchymosis with additional mild facial tenderness), Facial Tenderness. No: Sinus Tenderness Neck: Supple, Non-Tender, Full Range of Motion, Carotid Bruit (Moderate bilateral carotid bruits versus transmitted heart sounds). No: Lymphadenopathy (L), Lymphadenopathy (R), Thyromegaly Respiratory/Chest: No Respiratory Distress, Lungs Clear, Normal Breath Sounds, No Accessory Muscle Use, Chest Non-Tender. No: Pleural Rub, Retractions Cardiovascular: Normal Peripheral Pulses, Regular Rate, Rhythm, No Gallop, No JVD, No Rub, Systolic Murmur (23/6 MATEO of the aortic and mitral valves). No: No Edema (Dependent edema as below), Gallop/S3, Gallop/S4, Friction Rub Peripheral Pulses: 2+: Radial (L), Radial (R), Dorsalis Pedis (L), Dorsalis Pedis (R) GI/Abdominal: Normal Bowel Sounds, Soft, Non-Tender, No Organomegaly, No Distention, No Abnormal Bruit, No Mass, Pelvis Stable, Other (Obese). No: Guarding (Female) Exam: Deferred Rectal (Female) Exam: Deferred Back Exam: Full Range of Motion, Other (Mild kyphoscoliosis). No: CVA Tenderness (L), CVA Tenderness (R), Muscle Spasm, Paraspinal Tenderness, Vertebral Tenderness Extremities: Normal Range of Motion (Including left wrist), Non-Tender (Mild Palpation pain over 1 cm in length laceration over the mid left palmar surface with no evidence of deformity, crepitation, snuffbox tenderness, etc.), Pedal Edema (Stable trace to +1 bilateral pedal/pretibial edema), Kassie's Sign, Other (Mild abrasion over the left olecranon). No: Joint Swelling Neurological: Alert, Oriented, CN II-XII Intact, Normal Cognition, Normal Gait, Normal Reflexes, No Motor/Sensory Deficits Psychiatric: Normal Affect, Normal Mood Skin Exam: Ecchymosis (As above), Wound/Incision (As above). No: Diaphoretic Lymphatic: No Adenopathy Course - Vital Signs Last Recorded V/S: Last Vital Signs Temp 36.8 C 09/28/19 18:01 Pulse 94 09/28/19 18:01 Resp 18 09/28/19 18: BP 159/70 H 09/28/19 18: Pulse Ox 95 09/28/19 18:01 Vital Signs - 24 hr 09/28/19 18:01 Temperature [ 36.8 C Temporal] Pulse, 94 Peripheral [ Pulse Oximetry] Respiratory 18 Rate Blood Pressure 159/70 H [Right Upper Arm] O2 Sat by Pulse 95 Oximetry - Orders/Labs/Meds Orders: Active Orders 24 hr Category Date Time Status Max Facial Sinus wo Cont [CT] Stat Exams 09/28/19 18:06 Taken Obtain Past Medical Record [OM.PC] Routine Oth 09/28/19 18:06 Active Labs: None Meds: Medications Discontinued Medications Generic Name Dose Route Start Last Admin Trade Name Freq PRN Reason Stop Dose Admin Neomycin/Polymyxin/Bacitracin 2 each 09/28/19 18:56 09/28/19 19:09 Triple Antibiotic Oint TOP 09/28/19 18:57 2 each ONETIME ONE Administration - Radiology Interpretation Free Text/Narrative:: Telephone consultation at 19:25 hours the radiology department at [facility] in [place]. Preliminary verbal report of CT scan without contrast of the maxillofacial region does show evidence of mild nasal septum actually with possible mild perforation, however no evidence of maxillary fracture despite dental injury as above. Multiple caries noted. CT Results Date: 09/28/19 CT Results Time: 19:25 Departure - Departure Time of Disposition: 19:48 Disposition: Home, Self-Care 01 Condition: Good Clinical Impression: Trauma, Tooth loss, Laceration, Mixed anxiety depressive disorder, Valvular disease Nasal fracture Qualifiers: Encounter type: initial encounter Fracture type: closed Qualified Code(s): S02.2XXA - Fracture of nasal bones, initial encounter for closed fracture COPD (chronic obstructive pulmonary disease) Qualifiers: COPD type: emphysema Emphysema type: panlobular Qualified Code(s): J43.1 - Panlobular emphysema Hypertension Qualifiers: Hypertension type: essential hypertension Qualified Code(s): I10 - Essential (primary) hypertension CHF (congestive heart failure) Qualifiers: Heart failure type: unspecified Heart failure chronicity: acute Qualified Code(s): I50.9 - Heart failure, unspecified - Discharge Information *PRESCRIPTION DRUG MONITORING PROGRAM REVIEWED*: Not Applicable *COPY OF PRESCRIPTION DRUG MONITORING REPORT IN PATIENT BHAVESH: Not Applicable Instructions: Nasal Fracture, [id number], Head Injury, Adult, [id number], Laceration Care, Adult, [id number] Referrals: Khadra Burroughs NP [Primary Care Provider] - Forms: ED Department Discharge Additional Instructions: 1. Follow-up with your dentist [facility] for evaluation of your tooth loss and multiple caries 2. Otherwise, Follow up with your regular provider in 10-14 days as needed, if symptoms persist. Bring these discharge instructions with you to that visit. 3. Tylenol 650 mg by mouth every 4 hours and/or OTC ibuprofen 2-3 tabs by mouth every 6 hours with food as directed./needed. You may stagger these medications for 48-72 hours only, which essentially means that you are receiving a pain medication about every 2 hours. 4. Antibacterial soap wash/soak with subsequent antibacterial dressing such as Neosporin, etc. as directed 2 times per day until the wound or laceration site completely heals. Keep the area clean and dry with activity restrictions as discussed. Never use hydrogen peroxide for wound care. 5. Head precautions as directed-see form. 6. Immediately after this visit verify that your cellular telephone's voicemail has been activated and is empty. Also verify that your home telephone's answering machine is operating properly and has space to receive messages. Note that it is sometimes necessary for us to be able to contact you at a later date to discuss your medical care. 7. Please remember that we are ALWAYS here for you and want to answer any questions you may have. Feel free to call the hospital any time and we call you back [facility]. 8. Listerine gargles four times per day, after meals and at bedtime, with additional Chloroseptic lozenges or spray as needed for 10 days and/or until symptoms resolve. Sepsis Event Note (ED) - Focused Exam Vital Signs: Vital Signs Temp Pulse Resp BP Pulse Ox 09/28/19 18:01 36.8 C 94 18 159/70 H 95 - Problem List & Annotations (1) Trauma SNOMED Code(s): 006373257 Code(s): T14.90XA - INJURY, UNSPECIFIED, INITIAL ENCOUNTER Status: Acute Priority: High Onset Date: 09/28/19 Annotation/Comment:: A trauma code was immediately considered in this patient secondary to the mechanism of injury, how ever based on the clinical presentation of the patient, previous history, etc. this provider did not feel that a trauma code would affect the patient's level of care and was not warranted. Note nasal fracture and tooth injury as below. Symptomatic relief as per discharge instructions. Head precautions given, although head concussion was not suspected. (2) Nasal fracture SNOMED Code(s): 270968777 Code(s): S02.2XXA - FRACTURE OF NASAL BONES, INIT ENCNTR FOR CLOSED FRACTURE Status: Acute Priority: High Onset Date: 09/28/19 Annotation/Comment:: Minor nasal septal fracture with possible perforation. Symptomatic relief for now. ENT consultation depending on her clinical course. Qualifiers: Encounter type: initial encounter Fracture type: closed Qualified Code(s): S02.2XXA - Fracture of nasal bones, initial encounter for closed fracture (3) Tooth loss SNOMED Code(s): 74031850 Code(s): K08.109 - COMPLETE LOSS OF TEETH, UNSPECIFIED CAUSE, UNSPECIFIED CLASS Status: Acute Priority: High Onset Date: 09/28/19 Annotation/Comment:: Secondary to trauma as above. Follow-up with her dentist SEAN with her other care is also to be addressed at that time. No maxillary fracture by CT scan as above. (4) Laceration SNOMED Code(s): 386590239 Code(s): TAC2635 - Status: Acute Priority: Medium Onset Date: 09/28/19 Annotation/Comment:: Multiple minor abrasions and lacerations as above not requiring surgical repair. The nurse did apply Steri-Strips to the lower supraorbital left laceration anterior to mild persistent bleeding. Neosporin dressings placed. Wound care discussed. Emergency room nurse did confirm thorough NDHIN that the patient's last DTaP was given on 03/03/17. (5) Hypertension SNOMED Code(s): 39608189 Code(s): I10 - ESSENTIAL (PRIMARY) HYPERTENSION Status: Chronic Priority: Medium Annotation/Comment:: Her blood pressure was somewhat elevated in the emergency room likely secondary to her current discomfort and recent trauma. Continue to observe closely by her regular provider. Qualifiers: Hypertension type: essential hypertension Qualified Code(s): I10 - Essential (primary) hypertension (6) Mixed anxiety depressive disorder SNOMED Code(s): 445328289 Code(s): F41.8 - OTHER SPECIFIED ANXIETY DISORDERS Status: Chronic Priority: Medium Annotation/Comment:: Stable by history (7) COPD (chronic obstructive pulmonary disease) SNOMED Code(s): 36672725 Code(s): J44.9 - CHRONIC OBSTRUCTIVE PULMONARY DISEASE, UNSPECIFIED Status: Chronic Priority: Medium Annotation/Comment:: No recent fever or bronchitic type symptoms. Qualifiers: COPD type: emphysema Emphysema type: panlobular Qualified Code(s): J43.1 - Panlobular emphysema - Problem List Review Problem List Initiated/Reviewed/Updated: Yes - My Orders Last 24 Hours: My Active Orders 09/28/19 18:06 Max Facial Sinus wo Cont [CT] Stat Obtain Past Medical Record [OM.PC] Routine - Assessment/Plan Last 24 Hours: My Active Orders 09/28/19 18:06 Max Facial Sinus wo Cont [CT] Stat Obtain Past Medical Record [OM.PC] Routine Assessment:: As above Plan: As above. Extensive precautions were given to the patient and her , who are in agreement with the treatment plan. See Patient Instructions for further treatment and plan.
[2019-09-28 18:08] VITALS: BP 159/70; PULSE 94
[2019-09-28] MEDS: Bacitracin/Neomycin/Polymyxin B Oint 0.9 GM U/D Packet TOP ONE (19:09)
== END 2019-09-28 19:45 | disposition home or self-care (01) ==
LOC: LL.ED 17:59
DX: S02.2XXA Fracture of nasal bones, initial encounter for closed fracture (principal); S61.412A Laceration without foreign body of left hand, initial encounter; S01.112A Laceration without foreign body of left eyelid and periocular area, initial encounter; S50.312A Abrasion of left elbow, initial encounter; K08.109 Complete loss of teeth, unspecified cause, unspecified class; J43.1 Panlobular emphysema; F41.8 Other specified anxiety disorders; I38 Endocarditis, valve unspecified; E78.00 Pure hypercholesterolemia, unspecified; I13.0 Hypertensive heart and chronic kidney disease with heart failure and stage 1 through stage 4 chronic kidney disease, or unspecified chronic kidney disease; E11.22 Type 2 diabetes mellitus with diabetic chronic kidney disease; N18.3 Chronic kidney disease, stage 3 (moderate); I50.9 Heart failure, unspecified; E11.42 Type 2 diabetes mellitus with diabetic polyneuropathy; K02.9 Dental caries, unspecified; M41.9 Scoliosis, unspecified; M10.9 Gout, unspecified; E66.9 Obesity, unspecified; Z68.36 Body mass index [BMI] 36.0-36.9, adult; Z91.018 Allergy to other foods; Z88.8 Allergy status to other drugs, medicaments and biological substances; Z88.1 Allergy status to other antibiotic agents; Z79.899 Other long term (current) drug therapy; W01.0XXA Fall on same level from slipping, tripping and stumbling without subsequent striking against object, initial encounter
CPT/HCPCS: 70486; 99283-25

== ENCOUNTER 2023-01-26 16:30 | Emergency (ER) | payer MEDICARE, BC ==
[2023-01-26] MEDS ORDERED: Sodium Chloride 0.9% 10 ML Syringe FLUSH PRN (16:38)
[2023-01-26 17:22] LABS: BASOPHILS ABSOLUTE AUTO 0.02 K/uL (0.00-0.20); BASOPHILS PERCENT AUTO 0.1 % (0.0-2.0); HEMATOCRIT 37.4 % (34.0-46.0); HEMOGLOBIN 12.1 g/dL (11.7-15.5); LYMPHOCYTES PERCENT AUTO 2.8 % (10.0-50.0); MEAN CORPUSCULAR HGB CONC 32.4 g/dL (31.7-36.0); MEAN CORPUSCULAR VOLUME 89.7 fL (84.0-98.0); MONOCYTES ABSOLUTE AUTO 0.51 K/uL (0.00-1.00); MONOCYTES PERCENT AUTO 2.9 % (2.0-14.0); NEUTROPHILS ABSOLUTE AUTO 16.58 K/uL (1.40-7.00); NEUTROPHILS PERCENT AUTO 94.2 % (45.0-80.0); PLATELET COUNT,PLT 190 K/uL (150-350); RED BLOOD CELL COUNT 4.17 M/uL (3.77-5.09); RED CELL DISTRIBUTION WIDTH 17.6 % (11.2-14.1); WHITE BLOOD CELL COUNT,WBC 17.6 K/uL (4.0-10.2)
[2023-01-26 17:29] LABS: CORONAVIRUS COVID-19 NAA NEGATIVE (NEGATIVE); INFLUENZA A NAA NEGATIVE (NEGATIVE); INFLUENZA B NAA NEGATIVE (NEGATIVE); RESPIRATORY SYNCYTIAL VIR NAA NEGATIVE (NEGATIVE)
[2023-01-26] MEDS: Sodium Chloride 0.9% 1,000 ML IV ONE (17:37)
[2023-01-26] MEDS: Morphine 2 MG/ML SYRINGE IVPUSH ONE (17:40)
[2023-01-26] MEDS: Ondansetron 4 MG/2 ML SDV IVPUSH ONE (17:44)
[2023-01-26 17:50] LABS: ALANINE AMINOTRANSFERASE,ALT 36 U/L (12-78); ALBUMIN 2.9 g/dL (3.4-5.0); ALKALINE PHOSPHATASE 184 IU/L (46-116); ASPARTATE AMNIOTRANSFERASE,AST 133 U/L (15-37); BILIRUBIN TOTAL 1.4 mg/dL (0.2-1.0); BLOOD UREA NITROGEN,BUN 41 mg/dL (7-18); CALCIUM 9.8 mg/dL (8.5-10.1); CARBON DIOXIDE,CO2 23.2 mmol/L (21.0-32.0); CHLORIDE,CL 99 mmol/L (98-107); CREATININE 2.72 mg/dL (0.51-1.17); GLUCOSE RANDOM 85 mg/dL (70-99); MAGNESIUM 1.7 mg/dL (1.8-2.4); POTASSIUM,K 4.5 mmol/L (3.5-5.1); PROTEIN TOTAL,TP 9.1 g/dL (6.4-8.2); SODIUM,NA 132 mmol/L (136-145); TSH ULTRASENSITIVE 1.355 mIU/mL (0.358-3.740)
[2023-01-26 17:54] LABS: ANION GAP 14.3 meq/L (7-15); ESTIMATED GFR 17 mL/min (>=60)
[2023-01-26 18:03] LABS: APPEARANCE,URINE SLIGHTLY CLOUDY; BILIRUBIN,URINE SMALL (NEGATIVE); COLOR,URINE DARK YELLOW; GLUCOSE,URINE NEGATIVE (NEGATIVE); KETONES,URINE 15 mg/dL (NEGATIVE); LEUKOCYTE ESTERASE,URINE NEGATIVE (NEGATIVE); NITRITE,URINE NEGATIVE (NEGATIVE); OCCULT BLOOD,URINE MODERATE (NEGATIVE); PROTEIN,URINE 100 mg/dL (NEGATIVE); UROBILINOGEN,URINE 0.2 E.U./dL (0.2-1.0)
[2023-01-26 18:19] LABS: BACTERIA,URINE FEW /HPF (NONE TO FEW); EPITHELIAL CELLS,URINE FEW /LPF; HYALINE CASTS,URINE FEW; WBC,URINE 0-5 /HPF
[2023-01-26 18:20] LABS: AMORPHOUS SEDIMENT,URINE FEW /HPF (0/HPF); GRANULAR CASTS,URINE FEW; MUCUS,URINE FEW /LPF (NEGATIVE)
[2023-01-26] MEDS: cefTRIAXone 1 GM in Sodium Chloride 0.9% 100 ML IV SCH (18:40)
[2023-01-26] MEDS ORDERED: Sodium Chloride 0.9% 1,000 ML IV ONE (19:23)
[2023-01-26] MEDS ORDERED: Morphine 2 MG/ML SYRINGE IVPUSH ONE (20:05)
[2023-01-26 20:24] VITALS: BP 99/58; PULSE 107
== END 2023-01-26 20:15 ==
LOC: LL.ED 16:30
DX: S40.011A Contusion of right shoulder, initial encounter (principal); L03.115 Cellulitis of right lower limb; L03.116 Cellulitis of left lower limb; R79.89 Other specified abnormal findings of blood chemistry; R74.8 Abnormal levels of other serum enzymes; R79.1 Abnormal coagulation profile; E83.42 Hypomagnesemia; E87.1 Hypo-osmolality and hyponatremia; R74.02 Elevation of levels of lactic acid dehydrogenase [LDH]; I13.0 Hypertensive heart and chronic kidney disease with heart failure and stage 1 through stage 4 chronic kidney disease, or unspecified chronic kidney disease; E11.22 Type 2 diabetes mellitus with diabetic chronic kidney disease; N18.9 Chronic kidney disease, unspecified; I50.9 Heart failure, unspecified; N17.9 Acute kidney failure, unspecified; E78.00 Pure hypercholesterolemia, unspecified; E11.42 Type 2 diabetes mellitus with diabetic polyneuropathy; Z88.8 Allergy status to other drugs, medicaments and biological substances; Z88.1 Allergy status to other antibiotic agents; Z91.048 Other nonmedicinal substance allergy status; Z79.899 Other long term (current) drug therapy; Z20.822 Contact with and (suspected) exposure to COVID-19; W18.30XA Fall on same level, unspecified, initial encounter
CPT/HCPCS: 0241U; 36415; 71045; 80053; 81001; 82550; 83605; 83735; 83880; 84443; 84484; 85025; 85379; 87040; 93005; 96361; 96365; 96375; 99285-25; J0696; J2270; J3490; J7030